=== PATIENT | male | born 1955 | race Caucasian/White ===

== ENCOUNTER 2018-05-11 21:43 | Inpatient (IN) | payer OTHER ==
--- NOTE | 2018-05-11 22:53 | ED ---
General Adult HPI - General Source: patient, family Mode of arrival: ambulatory Limitations: no limitations <Zakia Shannon - Last Filed: 05/12/18 13:01> <Deepti Cowan - Last Filed: 05/12/18 21:31> - General Chief complaint: Skin/Abscess/Foreign Body Stated complaint: Left Elbow Injury Time Seen by Provider: 05/11/18 21:58 - History of Present Illness Initial comments: 62-year-old male with past medical history of atrial fibrillation on warfarin presenting today for chief complaint of left elbow swelling, redness and warmth. Patient states that about 3-4 days ago he felt as though he hit his elbow however there is no history of trauma. Patient denies any breaks the skin 's or bites he denies any itchiness. Patient states that since become swollen, red and warm to touch. Patient states he is limited range of motion secondary to pain. Patient states he was concerned for cellulitis as he has had this in the past and needed IV antibiotics and incision and drainage. PT does admit to having chills and night sweats, denies recording fever. Remaining ROS (-), Patient denies any recent surgeries, prosthetics, prosthetic valves, shortness of breath, chest pain, back pain, abdominal pain, nausea or vomiting, numbness or tingling, dysuria or hematuria, constipation or diarrhea, headaches or visual changes, or any other complaints. (Zakia Shannon) - Related Data Home Medications Medication Instructions Recorded Confirmed Lisinopril [Zestril] 2.5 mg PO DAILY 05/11/18 05/11/18 Metoprolol Tartrate [Lopressor] 50 mg PO BID 05/11/18 05/11/18 Multivit-Min/FA/Lycopen/Lutein 1 tab PO DAILY 05/11/18 05/11/18 [Centrum Silver Tablet] Vitamin E (Dl,Tocopheryl Acet) 400 unit PO DAILY 05/11/18 05/11/18 [Vitamin E] Warfarin Sodium [Coumadin] 5 mg PO SUMOWEFR 05/11/18 05/11/18 Warfarin Sodium [Coumadin] 7.5 mg PO TUTHSA 05/11/18 05/11/18 Aspirin 81 PO DAILY 05/12/18 Allergies Allergy/AdvReac Type Severity Reaction Status Date / Time No Known Allergies Allergy Verified 05/11/18 22:35 Review of Systems ROS Other: All systems not noted in ROS Statement are negative. <Zakia Shannon - Last Filed: 05/12/18 13:01> ROS Other: All systems not noted in ROS Statement are negative. <Eden Cowanica P - Last Filed: 05/12/18 21:31> ROS Statement: Those systems with pertinent positive or pertinent negative responses have been documented in the HPI. Past Medical History Past Medical History: Atrial Fibrillation, Hypertension, Renal Disease History of Any Multi-Drug Resistant Organisms: None Reported Past Surgical History: Heart Catheterization Past Psychological History: No Psychological Hx Reported Smoking Status: Never smoker Past Alcohol Use History: Occasional Past Drug Use History: None Reported - Past Family History Father Family Medical History: Diabetes Mellitus Additional Family Medical History / Comment(s): bipass surgery Mother Additional Family Medical History / Comment(s): TB as a kid <Zakia Shannon - Last Filed: 05/12/18 13:01> General Exam Limitations: no limitations <Zakia Shannon - Last Filed: 05/12/18 13:01> <CowanDeepti P - Last Filed: 05/12/18 21:31> - General Exam Comments Initial Comments: General: The patient is awake and alert, in no distress, and does not appear acutely ill. Eye: Pupils are equal, round and reactive to light, extra-ocular movements are intact. No nystagmus. There is normal conjunctiva bilaterally. No signs of icterus. Ears, nose, mouth and throat: There are moist mucous membranes and no oral lesions. Neck: The neck is supple, there is no tenderness or JVD. Cardiovascular: There is a regular rate and rhythm. No murmur, rub or gallop is appreciated. Respiratory: Lungs are clear to auscultation, respirations are non-labored, breath sounds are equal. No wheezes, stridor, rales, or rhonchi. Musculoskeletal: SOft tissue swelling and warmth to palpation of the left elbow in comparison with the right elbow. Normal ROM, no tenderness of the right elbow, there is limitation of full extension and flexion secondary to pain of the left. Strength 5/5 at the elbow, wrists, and shoulder equal b/l. Sensation intact. Radial pulses equal bilaterally 2+. No breaks in skin or ecchymosis.No swelling distal to elbow. Neurological: A&O x 3. CN II-XII intact, There are no obvious motor or sensory deficits. Coordination appears grossly intact. Speech is normal. Skin: Skin is warm and dry and no rashes or lesions are noted. Psychiatric: Cooperative, appropriate mood & affect, normal judgment. (Zakia Shannon) Course <Zakia Shannon - Last Filed: 05/12/18 13:01> <Deepti Cowan - Last Filed: 05/12/18 21:31> Vital Signs 05/11/18 05/12/18 21:54 00:26 Temperature 99.6 F 98.3 F Pulse Rate 75 76 Respiratory 20 18 Rate Blood Pressure 134/91 118/96 O2 Sat by Pulse 96 98 Oximetry - Reevaluation(s) Reevaluation #1: Upon shift change, and until patient admission to floor Dr. Cowan attending provider will resume patient care. 05/11/18 23:39 (Zakia Shannon) Medical Decision Making - Lab Data Result diagrams: 05/11/18 22:30 05/11/18 22:30 <Zakia Shannon - Last Filed: 05/12/18 13:01> - Lab Data Result diagrams: 05/11/18 22:30 05/11/18 22:30 <Deepti Cowan - Last Filed: 05/12/18 21:31> - Medical Decision Making 62-year-old male presenting for atraumatic left elbow pain swelling and erythema. Physical examination findings concerning for cellulitis however unable to rule out septic joint as patient has limitations of range of motion diffuse erythema and warmth. Patient was started on vancomycin and ceftriaxone empirically. Patient did have elevated inflammatory markers as well as mild leukocytosis. Patient complaining of constitutional symptoms such as night sweats as well as chills. Patient afebrile upon arrival,. Nontoxic no evidence of sepsis. Patient given IV fluids he will be admitted to medicine with orthopedic consultation. Patient is agreeable to admission denies constant this time. I did discuss the case attending provider Dr. Cowan who is agreeable patient's admission, and care plan. (Zakia Shannon) I personally saw and examined the patient. I reviewed and agree with the mid- level provider findings including all diagnostic interpretations and treatment plans as written. Patient with atraumatic left elbow pain swelling decreased range of motion. His leukocytosis as well as elevation of his inflammatory markers ESR and CRP. There is concerning for septic joint. IV antibiotics ordered patient was admitted to medicine for infection with orthopedics on consult for further evaluation and possible septic joint. (Deepti Cowan) - Lab Data Lab Results 05/11/18 05/11/18 05/11/18 Range/Units 22:30 22:30 22:30 WBC 11.9 H (3.8-10.6) k/uL RBC 4.66 (4.30-5.90) m/uL Hgb 13.8 (13.0-17.5) gm/dL Hct 42.3 (39.0-53.0) % MCV 90.8 (80.0-100.0) fL MCH 29.7 (25.0-35.0) pg MCHC 32.7 (31.0-37.0) g/dL RDW 13.7 (11.5-15.5) % Plt Count 258 (150-450) k/uL Neutrophils % 74 % Lymphocytes % 15 % Monocytes % 6 % Eosinophils % 2 % Basophils % 0 % Neutrophils # 8.9 H (1.3-7.7) k/uL Lymphocytes # 1.8 (1.0-4.8) k/uL Monocytes # 0.7 (0-1.0) k/uL Eosinophils # 0.2 (0-0.7) k/uL Basophils # 0.0 (0-0.2) k/uL ESR Cancelled PT 25.2 H (9.0-12.0) sec INR 2.6 H (<1.2) APTT 41.9 H (22.0-30.0) sec Sodium 141 (137-145) mmol/L Potassium 4.5 (3.5-5.1) mmol/L Chloride 109 H (98-107) mmol/L Carbon Dioxide 24 (22-30) mmol/L Anion Gap 8 mmol/L BUN 20 (9-20) mg/dL Creatinine 1.13 (0.66-1.25) mg/dL Est GFR (CKD-EPI)AfAm 80 (>60 ml/min/1.73 sqM) Est GFR (CKD-EPI)NonAf 69 (>60 ml/min/1.73 sqM) Glucose 113 H (74-99) mg/dL Calcium 8.6 (8.4-10.2) mg/dL Total Bilirubin 0.5 (0.2-1.3) mg/dL AST 19 (17-59) U/L ALT 29 (21-72) U/L Alkaline Phosphatase 61 (38-126) U/L C-Reactive Protein 73.7 H (<10.0) mg/L Total Protein 7.4 (6.3-8.2) g/dL Albumin 3.6 (3.5-5.0) g/dL 05/11/18 Range/Units 23:29 WBC (3.8-10.6) k/uL RBC (4.30-5.90) m/uL Hgb (13.0-17.5) gm/dL Hct (39.0-53.0) % MCV (80.0-100.0) fL MCH (25.0-35.0) pg MCHC (31.0-37.0) g/dL RDW (11.5-15.5) % Plt Count (150-450) k/uL Neutrophils % % Lymphocytes % % Monocytes % % Eosinophils % % Basophils % % Neutrophils # (1.3-7.7) k/uL Lymphocytes # (1.0-4.8) k/uL Monocytes # (0-1.0) k/uL Eosinophils # (0-0.7) k/uL Basophils # (0-0.2) k/uL ESR 60 H PT (9.0-12.0) sec INR (<1.2) APTT (22.0-30.0) sec Sodium (137-145) mmol/L Potassium (3.5-5.1) mmol/L Chloride (98-107) mmol/L Carbon Dioxide (22-30) mmol/L Anion Gap mmol/L BUN (9-20) mg/dL Creatinine (0.66-1.25) mg/dL Est GFR (CKD-EPI)AfAm (>60 ml/min/1.73 sqM) Est GFR (CKD-EPI)NonAf (>60 ml/min/1.73 sqM) Glucose (74-99) mg/dL Calcium (8.4-10.2) mg/dL Total Bilirubin (0.2-1.3) mg/dL AST (17-59) U/L ALT (21-72) U/L Alkaline Phosphatase (38-126) U/L C-Reactive Protein (<10.0) mg/L Total Protein (6.3-8.2) g/dL Albumin (3.5-5.0) g/dL Disposition Is patient prescribed a controlled substance at d/c from ED?: No Time of Disposition: 23:39 Decision to Admit Reason: Admit from EC Decision Date: 05/11/18 Decision Time: 23:39 <Zakia Shannon L - Last Filed: 05/12/18 13:01> <Deepti Cowan - Last Filed: 05/12/18 21:31> Clinical Impression: Swelling of left elbow, Septic joint of left elbow Disposition: ADMITTED IP TO THIS [facility] Condition: Stable
--- NOTE | 2018-05-11 22:55 | XR ---
EXAM: XR Left Elbow Complete, 3 or More Views CLINICAL HISTORY: ITS.REASON XR Reason: look for effusion TECHNIQUE: Frontal, lateral and oblique views of the left elbow. COMPARISON: No relevant prior studies available. IMPRESSION: There is joint effusion as evidenced by elevation of the anterior and posterior fat pads. There appears to be possible fracture line through coronoid process.
[2018-05-11 23:06] LABS: Basophils % (A) 0 %; Eosinophils # (A) 0.2 k/uL (0-0.7); Eosinophils % (A) 2 %; HCT 42.3 % (39.0-53.0); HGB 13.8 gm/dL (13.0-17.5); Lymphocytes # (A) 1.8 k/uL (1.0-4.8); Lymphocytes % (A) 15 %; MCH 29.7 pg (25.0-35.0); MCHC 32.7 g/dL (31.0-37.0); MCV 90.8 fL (80.0-100.0); Mean Platelet Volume 6.6; Monocytes # (A) 0.7 k/uL (0-1.0); Monocytes % (A) 6 %; Neutrophils # (A) 8.9 k/uL (1.3-7.7); Neutrophils % (A) 74 %; Platelet Count 258 k/uL (150-450); RBC 4.66 m/uL (4.30-5.90); RDW 13.7 % (11.5-15.5); WBC 11.9 k/uL (3.8-10.6)
[2018-05-11 23:10] LABS: INR 2.6 (<1.2); Partial Thromboplastin Time 41.9 sec (22.0-30.0); Prothrombin Time 25.2 sec (9.0-12.0)
[2018-05-11 23:14] LABS: Albumin 3.6 g/dL (3.5-5.0); C Reactive Protein 73.7 mg/L (<10.0); Calcium 8.6 mg/dL (8.4-10.2); Potassium 4.5 mmol/L (3.5-5.1); Total Bilirubin 0.5 mg/dL (0.2-1.3); Total Protein 7.4 g/dL (6.3-8.2)
[2018-05-11] MEDS ORDERED: VANCOMYCIN IV PER PHARMACY 1 EACH MISC MISCELLANE PRN (23:35)
[2018-05-11] MEDS ORDERED: NALOXONE 0.4 MG/ML 1 ML VIAL IV PRN (23:36)
[2018-05-11] MEDS ORDERED: IBUPROFEN 400 MG TAB PO PRN (23:36)
[2018-05-11] MEDS ORDERED: VANCOMYCIN 1,500 MG in SODIUM CHLORIDE 0.9% 250 ML IVPB STA (23:38)
[2018-05-12] MEDS: SODIUM CHLORIDE 0.9% 1,000 ML IV SCH ×2 (00:26→19:36)
--- NOTE | 2018-05-12 12:03 | P.CNOR ---
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 He says that he has been having decreased range of motion and pain over the outside of his left elbow. He denies any specific injury or trauma. He denies any history of any specific injury to his elbow in the past. He says the pain is mainly on the outside of his left elbow. He has pain at end ranges of his motion and has some decreased range of motion in his left elbow. He is not having any numbness tingling in his hands and fingers. He is not having problems in his shoulder. He is not having his neck. He denies any fevers chills. Denies any fevers or night sweats. Review of Systems Denies any fevers chills or night sweats. Denies any specific injury to his left elbow. Denies any pain in his other extremity. Denies any neck or back pain. Denies any weakness in his left hand. He has problems whenever he tries to move his elbow or bend it fully or extended fully. He says the pain is mainly on the outside of his elbow feels around the soft tissue rather than deepened to the joint. He says he does have history of gout. Past Medical History Past Medical History: Atrial Fibrillation, Hypertension, Renal Disease Additional Past Medical History / Comment(s): Admits to history of gout History of Any Multi-Drug Resistant Organisms: None Reported Past Surgical History: Heart Catheterization Past Psychological History: No Psychological Hx Reported Smoking Status: Never smoker Past Alcohol Use History: Occasional Past Drug Use History: None Reported - Past Family History Father Family Medical History: Diabetes Mellitus Additional Family Medical History / Comment(s): bipass surgery Mother Additional Family Medical History / Comment(s): TB as a kid Medications and Allergies Home Medications Medication Instructions Recorded Confirmed Type Lisinopril [Zestril] 2.5 mg PO DAILY 05/11/18 05/11/18 History Metoprolol Tartrate [Lopressor] 50 mg PO BID 05/11/18 05/11/18 History Multivit-Min/FA/Lycopen/Lutein 1 tab PO DAILY 05/11/18 05/11/18 History [Centrum Silver Tablet] Vitamin E (Dl,Tocopheryl Acet) 400 unit PO DAILY 05/11/18 05/11/18 History [Vitamin E] Warfarin Sodium [Coumadin] 5 mg PO SUMOWEFR 05/11/18 05/11/18 History Warfarin Sodium [Coumadin] 7.5 mg PO TUTHSA 05/11/18 05/11/18 History Aspirin 81 PO DAILY 05/12/18 History Allergies Allergy/AdvReac Type Severity Reaction Status Date / Time No Known Allergies Allergy Verified 05/11/18 22:35 Physical Examination Osteopathic Statement: *. No significant issues noted on an osteopathic structural exam other than those noted in the History and Physical/Consult. - Elbow left Location of pain: medial, lateral Swelling: of the elbow (At his left elbow there is some diffuse swelling posteriorly. There is no fluctuance at the olecranon bursa. There is warmth over the area but no significant erythema. He has motion at his left elbow independently to about 30 shy of full extension to roughly 110. His overall arc is from 110 to approximately 150. He has good supination and pronation. He has no pain in his wrist hand or fingers. He has full active passive motion range of motion of his wrist hand and fingers. He has tenderness to palpation over his lateral epicondyle. There is no pain with resisted extension or resisted extension of his fingers. There is no tenderness over his radial head. There is mild tenderness over his medial epicondyle. There is no tenderness over his olecranon. There is no olecranon bursa fluid.) Results - Labs Labs: Abnormal Lab Results - Last 24 Hours (Table) 05/11/18 05/11/18 05/11/18 Range/Units 22:30 22:30 22:30 WBC 11.9 H (3.8-10.6) k/uL Neutrophils # 8.9 H (1.3-7.7) k/uL ESR (0-15) mm/hr PT 25.2 H (9.0-12.0) sec INR 2.6 H (<1.2) APTT 41.9 H (22.0-30.0) sec Chloride 109 H (98-107) mmol/L Glucose 113 H (74-99) mg/dL C-Reactive Protein 73.7 H (<10.0) mg/L 05/11/18 Range/Units 23:29 WBC (3.8-10.6) k/uL Neutrophils # (1.3-7.7) k/uL ESR 60 H (0-15) mm/hr PT (9.0-12.0) sec INR (<1.2) APTT (22.0-30.0) sec Chloride (98-107) mmol/L Glucose (74-99) mg/dL C-Reactive Protein (<10.0) mg/L H & H 05/11/18 Range/Units 22:30 Hgb 13.8 (13.0-17.5) gm/dL Hct 42.3 (39.0-53.0) % Coagulation 05/11/18 Range/Units 22:30 INR 2.6 H (<1.2) Result Diagrams: 05/11/18 22:30 05/11/18 22:30 - Diagnostic results Elbow x-ray: report reviewed, image reviewed (Left elbow x-rays show some diffuse swelling. There is some old-appearing consultation changes at the tip of the coronoid but this does not appear acute. There is no obvious fracture at the epicondyles.) Assessment and Plan Assessment: Left elbow pain and swelling possible cellulitis, atraumatic No apparent fracture acutely at the bony elbow. Possible gout left elbow Plan: Left elbow pain and swelling possible cellulitis, atraumatic No apparent fracture acutely at the bony elbow. Possible gout left elbow We discussed the nature the patient's pain today and they different possibilities including the possibility of infected left elbow joint. It does not appear to be grossly infected at the elbow joint itself. He is having some warmth and decreased range of motion with pain in his left elbow so this is certainly concern. We will also be conservative the possibility of gout. He has primarily most of his pain at his lateral condyle condyle and posterior along his elbow where there is some warmth. He does not have olecranon bursitis. He is not having pain over the radial head. He is started on vancomycin which is appropriate for him and may do well with warm compresses over his left elbow for cellulitis. He may do well with some relative immobilization as needed with a Lucho wrap and a arm sling as well we will order that for him that he can use on as-needed basis for comfort. In regards to possibility of septic arthritis versus gout we discussed possibility of a joint aspiration at bedside. We discussed risks, occasions of this and he elected to proceed with it as this would help with diagnosis and possible treatment. Today at bedside after obtaining informed consent I performed a aspiration of his left elbow laterally. I was able to enter into the joint space. There is no evidence of any purulence. There is no pus. I was only able to withdraw one drop of clear synovial yellowish fluid. There is no significant fluid in the joint space. The joint fluid appeared to be essentially normal. I took a culture of the joint fluid itself we were not able to send the fluid for any cell count or crystals. The patient tolerated the procedure well. We will follow closely the results and continue conservative treatment for him. I think it is okay for the patient to have regular diet as we do not have surgical plans at this point. Time with Patient: Greater than 30
[2018-05-12] MEDS: VANCOMYCIN 1,500 MG in SODIUM CHLORIDE 0.9% 250 ML IVPB SCH (13:23)
[2018-05-12] MEDS: ACETAMINOPHEN TAB 325 MG TAB PO PRN (19:34)
--- NOTE | 2018-05-12 20:07 | CONS ---
CONSULTATION DATE OF SERVICE: 05/12/2018. REASON FOR CONSULTATION: Left elbow cellulitis. HISTORY OF PRESENT ILLNESS: The patient is a 62 -year-old male presenting to the ER at [facility] last night with chief complaints of pain, swelling and redness to the left elbow area that apparently started about 3 days before he presented to the hospital. Patient did not recall any history of any trauma or any sore or any pimple on his left elbow area. Subsequently the elbow and the left upper arm area becoming more swollen, red and painful. Pain described to be throbbing almost 7 to 8 out of 10 and severe with no radiation and is painful with movement of his elbow joint. The patient did have some chills but denies high-grade fever. The patient did have a previous history of cellulitis in the same location. With concern for the same, the patient presented to the [facility] ER where the patient was evaluated by the ER physician. The patient did have x-rays of the elbow. There is joint effusion as evidenced by elevation of the anterior and posterior fat pads, possible fracture line through the coronoid process. The patient, on admission, did have a low grade fever of 99.6, subsequent did have a fever of 100 degrees Fahrenheit. The patient with tachycardia with elevated white count of 11.9. Kidney function has been normal. CRP was 73.7. The patient has been started on vancomycin. An aspirate of the left arm has been done by the ER physician, sent only for culture. Infectious Disease was consulted for further recommendations regarding antibiotic therapy. REVIEW OF SYSTEMS: CONSTITUTIONAL: Positive for weakness and chills. EYES: No complaint. ENT no complaint. Respiratory no complaint. Cardiovascular no complaint. Genitourinary no complaint. Gastrointestinal: No complaint. Musculoskeletal as per HPI. INTEGUMENTARY as per HPI. Psychological no complaint. Endocrine no complaint. Neurologic no complaint. PAST MEDICAL HISTORY: Atrial fibrillation, Renal insufficiency, hypertension, previous episode of cellulitis. PAST SURGICAL HISTORY: Heart catheterization. SOCIAL HISTORY: No history of smoking, occasionally drinks. No drug use. FAMILY HISTORY: Father history of coronary artery disease and diabetes mellitus, mother with history of TB as a child. ALLERGIES: No known drug allergies. MEDICATIONS: Medications include the patient is on vancomycin 1500 mg q.12h, Narcan, Motrin, Tylenol. PHYSICAL EXAMINATION: On examination, blood pressure is 115/74 with a pulse of 96, temperature of 100. He is 95% on room air. General description is a middle aged male up in the bed in no distress. No tachypnea or accessories muscles of respiration use. HEENT: Shows no pallor or scleral icterus. Oral mucosa membranes are moist with no pharyngeal erythema or thrush. Neck: Trachea central. No thyromegaly. Lungs unlabored breathing. Clear to auscultation anteriorly. No wheeze or crackles. Heart S1, S2. Regular rate and rhythm. No chest pain. ABDOMEN: Soft, no tenderness. No guarding. No rigidity. No organomegaly. Extremities: No edema of the feet. Examination of left upper arm on the elbow area there is no significant swelling, redness was noticed. The patient did have some on the lateral side of the elbow and the upper arm area did have area of swelling and redness, slightly warm to touch. No open wound or any fluctuation. No drainage. Neurological: Patient is awake, alert, oriented times three. Mood and affect normal. LABS: Hemoglobin 13.2, white count 11.9, INR 2.6 with a BUN of 20, creatinine 1.13. X-ray report as mentioned above. Culture currently pending. DIAGNOSTIC IMPRESSION AND PLAN: Patient with acute left upper extremity cellulitis, predominantly at the elbow area with evidence of fluid, concern possibly for the septic olecranon bursitis, less likely acute arthritis in this patient admitted to the hospital with complaint of sepsis. The patient did have a fever and tachycardia, elevated white count, likely from a gram- positive skin rima such as strep underlying MRSA infection not entirely excluded. PLAN: 1. Vancomycin pharmacy to dose target of 15. 2. Will wait for the aspirate of the elbow and discuss with the Orthopedic the patient will benefit from further ID of the left olecranon bursa or bursectomy. 3. We will follow up on clinical condition and culture to further adjust medication if needed. Thank you for this consultation. We will follow this patient along with you. MMODL / IJN: [id number] /
[2018-05-12] MEDS: METOPROLOL TARTRATE 50 MG TAB PO SCH (21:59)
[2018-05-13] MEDS: VANCOMYCIN 1,500 MG in SODIUM CHLORIDE 0.9% 250 ML IVPB SCH ×2 (01:04→13:26)
[2018-05-13] MEDS: METOPROLOL TARTRATE 50 MG TAB PO SCH ×2 (07:38→21:12)
[2018-05-13] MEDS: LISINOPRIL 2.5 MG TAB PO SCH (07:38)
[2018-05-13] MEDS: ACETAMINOPHEN TAB 325 MG TAB PO PRN ×3 (07:40→21:10)
--- NOTE | 2018-05-13 08:50 | P.PN ---
Progress Note - Text Progress Note Date: 05/13/18 Patient is a pleasant 62-year-old male who is seen in the bedside for follow-up evaluation in regards to his left elbow. Yesterday joint aspiration of the left elbow was performed at bedside and fluid was sent for culture. Culture results are still pending but preliminary results show rare gram-positive cocci. He was seen and examined yesterday by Dr. Lerma infectious disease. He is currently on vancomycin. Patient states his left elbow pain has improved since yesterday. He does have some generalized swelling at the left elbow with some mild pain with palpation over the lateral epicondyle. His most significant complaint at the bedside today is increased swelling over the fingers of the left hand. He does not have increased swelling over the distal forearm or over the hand but does have swelling and all 5 digits of the left hand. He denies any injuries overnight. He continues to be seeing exam by medicine. Physical Exam: Patient is awake, alert, and oriented 3 Vital signs stable Good chest excursion with deep inspiration and expiration Diffuse swelling posteriorly over the left elbow No fluctuance over the olecranon bursa Skin over the left elbow is warm to palpation Mild pain with palpation over the lateral epicondyle No significant tenderness with palpation over the medial epicondyle No tenderness over the olecranon No palpable fluid collection Patient has had some increased range of motion with flexion and extension of the left elbow as compared to yesterday Patient is able to perform supination and pronation without significant difficulty Significant pain with palpation over the left forearm, hand, or digits of the left hand Evidence of increased swelling over all 5 digits of the left hand Patient has difficulty making a fist with the left hand due to swelling over all 5 digits of the left hand New onset swelling of the fingers of the left hand Neurovascularly intact left upper extremity Pertinent studies: Left elbow wound Gram stain preliminary results: Rare gram-positive cocci and few polymorphonuclear leukocytes Anaerobic wound culture of the left elbow preliminary results: No growth after 24 hours Assessment: Left elbow pain and swelling atraumatic Positive preliminary Gram stain results of rare gram-positive cocci at the left elbow Swelling of 5 digits of the left hand with reduced range of motion due to swelling Plan: 1. Patient will be discussed in detail today with Dr. Lawrence Joiner. Patient has had some improvement of his left elbow pain since being seen exam yesterday. He continues to receive vancomycin. He has been seen and examined by Dr. Lerma infectious disease. His most significant pain is increased swelling with some decreased range of motion of the fingers of the left hand due to swelling. It is difficult to determine the cause of the increased swelling in the fingers of the left hand. He is not experiencing any significant swelling over the left distal forearm or hand. He does not currently have a palpable fluid collection , any open wounds, no active drainage from the left elbow, and no obvious area of the left elbow currently in which irrigation and debridement at the left elbow would provide significant change in his symptoms. We are currently planning to continue with conservative treatment options. Patient may continue with vancomycin as prescribed by infectious disease. After further discussion with Dr. Lawrence Joiner, we will adjust our plan accordingly if he feels we should proceed forward with more invasive treatment. In the meantime we will continue conservative treatment as previously set forth. He may continue with warm compresses over the left elbow for comfort and support. He may use Lucho wrap and arm sling for comfort support as needed. 2. Patient will continue to be seen and exam by Dr. Lerma infectious disease and medicine.
[2018-05-13 11:11] LABS: Anion Gap 7 mmol/L; Blood Urea Nitrogen 18 mg/dL (9-20); Calcium 8.9 mg/dL (8.4-10.2); Carbon Dioxide 24 mmol/L (22-30); Chloride 108 mmol/L (98-107); Glucose 139 mg/dL (74-99); Sodium 139 mmol/L (137-145)
--- NOTE | 2018-05-13 14:51 | P.PN ---
Progress Note - Text Came in multiple times to see the patient. Patient not available. Patient is an MRI. We'll see him again in the evening or tomorrow.
[2018-05-13] MEDS: SODIUM CHLORIDE 0.9% 1,000 ML IV SCH (14:59)
--- NOTE | 2018-05-13 16:23 | PN ---
PROGRESS NOTE DATE OF SERVICE: 05/13/2018 REASON FOR FOLLOWUP: Left upper extremity cellulitis with a question of olecranon bursitis. INTERVAL HISTORY: The patient is currently afebrile. The patient is breathing comfortably. The patient does have some pain to the left upper extremity area, though overall swelling and redness have decreased and the pain has decreased in intensity. He denies having any chest pain, shortness of breath or cough. No abdominal pain or any diarrhea. PHYSICAL EXAMINATION: Blood pressure 126/80 with a pulse of 80, temperature 98.6. He is 96% on room air. General description is a middle-aged male lying in bed in no distress. RESPIRATORY SYSTEM: Unlabored breathing. Clear to auscultation anteriorly. HEART: S1, S2. Regular rate and rhythm. ABDOMEN: Soft. No tenderness. Left arm swelling and redness decreased. LABS: BUN of 18, creatinine 0.97. Blood culture negative. The aspirate of the left elbow is currently pending. DIAGNOSTIC IMPRESSION AND PLAN: Patient with left upper extremity cellulitis in this patient with a question of possible olecranon bursitis. Currently on vancomycin; to continue for now while waiting for the culture to finalize. Continue with supportive care. MMODL / IJN: [id number] /
[2018-05-13 16:30] LABS: INR 2.1 (<1.2); Prothrombin Time 20.2 sec (9.0-12.0)
--- NOTE | 2018-05-13 17:54 | MR ---
MR left elbow with and without contrast HISTORY: Pain and swelling Correlation to plain film 05/11/2017 Multiplanar multisequence imaging through the left elbow There is an elbow joint effusion. Triceps tendon shows a normal insertion. 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 Subcutaneous edema is present. Some fluid signal also present along the fascial planes. No evident biceps tear. Post contrast images show nodular enhancement of the synovium. Bone marrow shows normal signal. No evident periostitis. IMPRESSION: There is underlying osteoarthritis. Inflammatory changes of the synovium, no evident bone erosion or periostitis to suggest osteomyelitis. Difficult to exclude superinfection of patient's peter int effusion..
[2018-05-14] MEDS: VANCOMYCIN 1,500 MG in SODIUM CHLORIDE 0.9% 250 ML IVPB SCH ×2 (01:40→12:53)
[2018-05-14] MEDS: METOPROLOL TARTRATE 50 MG TAB PO SCH ×2 (07:31→21:13)
[2018-05-14] MEDS: LISINOPRIL 2.5 MG TAB PO SCH (07:31)
[2018-05-14] MEDS: ASPIRIN 81 MG PO SCH (07:31)
[2018-05-14] MEDS: ACETAMINOPHEN TAB 325 MG TAB PO PRN ×2 (07:31→21:13)
[2018-05-14] MEDS: SODIUM CHLORIDE 0.9% 1,000 ML IV SCH (10:39)
[2018-05-14] MEDS ORDERED: VANCOMYCIN TROUGH DUE 1 EACH MISC MISCELLANE ONE (12:00)
[2018-05-14 12:28] LABS: Anion Gap 7 mmol/L; Blood Urea Nitrogen 19 mg/dL (9-20); Calcium 8.9 mg/dL (8.4-10.2); Carbon Dioxide 25 mmol/L (22-30); Chloride 108 mmol/L (98-107); Glucose 83 mg/dL (74-99); Potassium 4.3 mmol/L (3.5-5.1); Sodium 140 mmol/L (137-145)
--- NOTE | 2018-05-14 13:09 | P.PN ---
Progress Note - Text Progress Note Date: 05/14/18 Patient is a pleasant 62-year-old male who is seen in the bedside for follow-up evaluation in regards to his left elbow. Sunday joint aspiration of the left elbow was performed at bedside and fluid was sent for culture. Gram stain results have been finalized and show rare gram-positive cocci. He was seen and examined yesterday by Dr. Lerma infectious disease. He continues to be on vancomycin. Patient states his left elbow pain has continued to improved since yesterday. He does have some generalized swelling at the left elbow with some mild pain with palpation over the lateral epicondyle. He has better range of motion of the left elbow. His most significant complaint at the bedside today is increased swelling over the fingers of the left hand but the swelling has improved as compared to yesterday. He does not have increased swelling over the distal forearm or over the hand but does have swelling and all 5 digits of the left hand. He denies any injuries overnight. He continues to be seeing exam by medicine. An MRI of the left elbow was performed after being ordered yesterday with and without contrast. Physical Exam: Patient is awake, alert, and oriented 3 Vital signs stable Good chest excursion with deep inspiration and expiration Diffuse swelling posteriorly over the left elbow No fluctuance over the olecranon bursa Skin over the left elbow is warm to palpation Mild pain with palpation over the lateral epicondyle No significant tenderness with palpation over the medial epicondyle No tenderness over the olecranon No palpable fluid collection Patient has had some increased range of motion with flexion and extension of the left elbow as compared to yesterday Patient is able to perform supination and pronation without significant difficulty No significant pain with palpation over the left forearm, hand, or digits of the left hand Evidence of mild swelling over all 5 digits of the left hand which is reduced as compared to yesterday Patient has better range of motion with flexion and extension of all fingers of the left hand Neurovascularly intact left upper extremity Pertinent studies: MRI of the left elbow with and without contrast taken on 05/13/2018: Underlying osteoarthritis; inflammatory changes of the synovium with no evidence of bony erosion or periostitis to suggest osteomyelitis; difficult to exclude superinfection of patient's joint effusion Left elbow wound Gram stain preliminary results: Rare gram-positive cocci and few polymorphonuclear leukocytes Anaerobic wound culture of the left elbow preliminary results: No growth after 24 hours Assessment: Left elbow pain and swelling atraumatic Positive finalized Gram stain results of rare gram-positive cocci at the left elbow, which could be due to contamination Reduce swelling of the 5 digits of the left hand with better range of motion Plan: 1. Patient was discussed in detail today with Dr. Lawrence Joiner. Patient's left elbow MRI has been reviewed. MRI results do not look suspicious for osteomyelitis. Patient is continue to have improvement of his left elbow pain and has had better range of motion left elbow with continued treatment with vancomycin. The swelling in his left hand has improved and he has better range of motion of the fingers of the left hand. At this time, we will continue conservative treatment. We are not currently planning for surgical intervention at the left elbow. He does not currently have a palpable fluid collection, any open wounds, no active drainage from the left elbow, and no obvious area of the left elbow currently in which irrigation and debridement at the left elbow would provide significant change in his symptoms. We are currently planning to continue with conservative treatment options. Patient may continue with vancomycin as prescribed by infectious disease. Patient may continue with warm compresses over the left elbow for comfort and support. He may use Lucho wrap and arm sling for comfort support as needed. Patient will be cleared for discharge from an orthopedic standpoint and we will plan have him follow up in approximately 1-2 weeks for further evaluation. Patient may follow -up with Ronn Guerrero PA-C or Dr. Lawrence Joiner at [facility] following discharge. If the patient has a significant change in his symptoms during this admission may be contacted for further evaluation and to discuss further treatment options. 2. Patient will continue to be seen and examed by Dr. Lerma infectious disease and medicine.
--- NOTE | 2018-05-14 15:21 | P.HPIM ---
History of Present Illness H&P Date: 05/12/18 Chief Complaint: Left elbow pain This very pleasant 59-year-old gentleman past medical history significant for A. ge[place] on Coumadin comes into the ER for pain in his left elbow for the past 3 days. Patient says that he's also having redness and swelling at the site. He denies any trauma or any source of infection. The elbow was becoming more and more swollen and painful so he came into the ER for further urology management. The patient does not complain of any feve but admits to having chills. He does not otherwise complain of any chest pain racing heart, no cough no shortness of breath, no abdominal pain, nausea and vomiting, no diarrhea constipation, no tingling numbness on in the extremities, no itch or rash Review of Systems All systems: negative Past Medical History Past Medical History: Atrial Fibrillation, Hypertension, Renal Disease Additional Past Medical History / Comment(s): Admits to history of gout History of Any Multi-Drug Resistant Organisms: None Reported Past Surgical History: Heart Catheterization Past Psychological History: No Psychological Hx Reported Smoking Status: Never smoker Past Alcohol Use History: Occasional Past Drug Use History: None Reported - Past Family History Father Family Medical History: Diabetes Mellitus Additional Family Medical History / Comment(s): bipass surgery Mother Additional Family Medical History / Comment(s): TB as a kid Medications and Allergies Home Medications Medication Instructions Recorded Confirmed Type Lisinopril [Zestril] 2.5 mg PO DAILY 05/11/18 05/11/18 History Metoprolol Tartrate [Lopressor] 50 mg PO BID 05/11/18 05/11/18 History Multivit-Min/FA/Lycopen/Lutein 1 tab PO DAILY 05/11/18 05/11/18 History [Centrum Silver Tablet] Vitamin E (Dl,Tocopheryl Acet) 400 unit PO DAILY 05/11/18 05/11/18 History [Vitamin E] Warfarin Sodium [Coumadin] 5 mg PO SUMOWEFR 05/11/18 05/11/18 History Warfarin Sodium [Coumadin] 7.5 mg PO TUTHSA 05/11/18 05/11/18 History Aspirin 81 PO DAILY 05/12/18 History Allergies Allergy/AdvReac Type Severity Reaction Status Date / Time No Known Allergies Allergy Verified 05/11/18 22:35 Physical Exam Vitals: Vital Signs Temp Pulse Resp BP Pulse Ox 05/14/18 15:00 98.5 F 76 16 126/66 95 05/14/18 07:55 16 05/14/18 05:52 97.9 F 61 20 115/76 95 05/14/18 00:00 18 05/13/18 23:00 99 F 94 20 124/82 93 L 05/13/18 15:19 18 Intake and Output 05/14/18 05/14/18 05/14/18 06:59 14:59 22:59 Intake Total 100 Balance 100 Intake: Oral 100 Other: # Voids 1 3 # Bowel Movements 0 On exam, alert and oriented x3. HEENT: Conjunctivae normal. eyes normal. NECK: No JVD. No thyroid enlargement. No LNs CARDIOVASCULAR: S1, S2 muffled. No murmur RESPIRATION: Breath sounds diminished in the bases. No rhonchi or crackles. No bronchial breathing. ABDOMEN: Soft, nontender . No guarding. no masses palpable. No ascites, No hepatosplenomegaly.Bowel sounds heard. [place] skeleton-patient is having swelling redness increased pain and decreased range of motion of his left elbow. NERVOUS SYSTEM: Cranial N 2-12 grossly normal. Moves all 4 limbs. No focal deficits. No sensory deficit. No signs of cerebellar dysfucntion. Skin: no ulcer no rash Results CBC & Chem 7: 05/11/18 22:30 05/14/18 12:00 Labs: Abnormal Lab Results - Last 24 Hours (Table) 05/13/18 05/14/18 Range/Units 10:10 12:00 PT 20.2 H (9.0-12.0) sec INR 2.1 H (<1.2) Chloride 108 H (98-107) mmol/L Microbiology - Last 24 Hours (Table) 05/12/18 11:30 Anaerobic Culture - Preliminary Elbow - Left 05/12/18 11:30 Gram Stain - Final Elbow - Left Wound Culture - Final 05/11/18 22:30 Blood Culture - Preliminary Blood No Growth after 48 hours Thrombosis Risk Factor Assmnt - Choose All That Apply Any of the Below Risk Factors Present?: Yes Each Factor Represents 1 point: Obesity (BMI >25) Other Risk Factors: Yes Each Risk Factor Represents 2 Points: Age 61-74 years Other congenital or acquired thrombophilia - If yes, enter type in comment: Yes Thrombosis Risk Factor Assessment Total Risk Factor Score: 3 Thrombosis Risk Factor Assessment Level: Moderate Risk Assessment and Plan Assessment: - Left elbow pain and redness and swelling rule out septic arthritis versus BURSITIS - History of A. fib on Coumadin - Hypertension - CKD Plan - We will admit the patient to [facility] with telemetry - We'll continue Rocephin - Orthopedics on board who aspirated the fluid - We'll consult ID for antibiotic recommendations - We'll resume the patient's home medications - DVT and GI prophylaxis - We'll order for lab work in the morning - Expected length of stay more than 2 midnights - Patient is full code Time with Patient: Greater than 30
--- NOTE | 2018-05-14 15:23 | P.PN ---
Subjective Patient says that his pain and swelling has gone a little bit and is able to move his left elbow better No fever no chills Objective - Vital Signs Vital signs: Vital Signs Temp 98.5 F 05/14/18 15:00 Pulse 76 05/14/18 15:00 Resp 16 05/14/18 15:00 BP 126/66 05/14/18 15:00 Pulse Ox 95 05/14/18 15:00 Intake & Output 05/13/18 05/14/18 05/14/18 18:59 06:59 18:59 Intake Total 240 300 Balance 240 300 Intake: Oral 240 300 Other: # Voids 3 1 3 # Bowel Movements 0 - Exam On exam, alert and oriented x3. HEENT: Conjunctivae normal. eyes normal. NECK: No JVD. No thyroid enlargement. No LNs CARDIOVASCULAR: S1, S2 muffled. No murmur RESPIRATION: Breath sounds diminished in the bases. No rhonchi or crackles. No bronchial breathing. ABDOMEN: Soft, nontender . No guarding. no masses palpable. No ascites, No hepatosplenomegaly.Bowel sounds heard. LEGS: Swelling of the elbow joint NERVOUS SYSTEM: Cranial N 2-12 grossly normal. Moves all 4 limbs. No focal deficits. No sensory deficit. No signs of cerebellar dysfucntion. Skin: no ulcer no rash Joints: No active swelling. No inflammation. Lymphatic system. No LN neck axilla or groin. - Labs CBC & Chem 7: 05/11/18 22:30 05/14/18 12:00 Labs: Abnormal Lab Results - Last 24 Hours (Table) 05/13/18 05/14/18 Range/Units 10:10 12:00 PT 20.2 H (9.0-12.0) sec INR 2.1 H (<1.2) Chloride 108 H (98-107) mmol/L Microbiology - Last 24 Hours (Table) 05/12/18 11:30 Anaerobic Culture - Preliminary Elbow - Left 05/12/18 11:30 Gram Stain - Final Elbow - Left Wound Culture - Final 05/11/18 22:30 Blood Culture - Preliminary Blood No Growth after 48 hours Assessment and Plan Assessment: - Left elbow pain and redness and swelling rule out septic arthritis versus BURSITIS - History of A. fib on Coumadin - Hypertension - CKD Plan - Continue vancomycin - Orthopedics plans no active interventions. MRI shows no acute pathology - ID on board for antibiotic recommendations. They recommended continue IV antibiotic on board a history still has some swelling and redness. - We will evaluate the patient again tomorrow to see how is doing Time with Patient: Less than 30
[2018-05-14 16:13] LABS: INR 1.5 (<1.2); Prothrombin Time 14.8 sec (9.0-12.0)
[2018-05-14] MEDS: ceFAZolin IN SWFI 2 GM/20 ML SYRINGE IVP SCH (16:30)
[2018-05-14] MEDS ORDERED: WARFARIN 7.5 MG TAB PO SCH (18:00)
[2018-05-15] MEDS: ceFAZolin IN SWFI 2 GM/20 ML SYRINGE IVP SCH ×3 (00:41→15:33)
--- NOTE | 2018-05-15 00:46 | PN ---
PROGRESS NOTE DATE OF SERVICE: 05/14/2018. REASON FOR FOLLOWUP: Left upper extremity cellulitis. INTERVAL HISTORY: The patient is currently afebrile. The patient is breathing comfortably. Did mention overall improvement swelling. No chest pain. No abdominal pain or any diarrhea. PHYSICAL EXAMINATION: Blood pressure is 126/66 with a pulse of 73, temperature 98.5. He is 95% on room air. General description is a middle aged male up in the bed in no distress. Respiratory system: Unlabored breathing. Clear to auscultation anteriorly. Heart S1, S2. Regular rate and rhythm. Abdomen soft. No tenderness. Left elbow and arm area swelling has improved. LABS: BUN of 19, creatinine is 1.5. DIAGNOSTIC IMPRESSION AND PLAN: Patient admitted to the hospital with left upper extremity swelling and redness and concern for cellulitis/ of positive. The patient is currently on vancomycin that will be transitioned to Cefazolin 2 g q.8h and if the patient does show overall clinical improvement, plan to finish therapy with oral Keflex, and close outpatient followup. Continue supportive care. MMODL / IJN: [id number] /
[2018-05-15] MEDS: SODIUM CHLORIDE 0.9% 1,000 ML IV SCH (06:14)
[2018-05-15] MEDS: ASPIRIN 81 MG PO SCH (08:58)
[2018-05-15] MEDS: METOPROLOL TARTRATE 50 MG TAB PO SCH (08:58)
[2018-05-15] MEDS: LISINOPRIL 2.5 MG TAB PO SCH (08:58)
[2018-05-15 09:38] LABS: HCT 46.9 % (39.0-53.0); HGB 14.8 gm/dL (13.0-17.5); Hypochromasia Slight; MCH 29.6 pg (25.0-35.0); MCHC 31.6 g/dL (31.0-37.0); MCV 93.8 fL (80.0-100.0); Mean Platelet Volume 6.2; Platelet Count 318 k/uL (150-450); RDW 13.5 % (11.5-15.5); WBC 10.6 k/uL (3.8-10.6)
[2018-05-15 09:47] LABS: INR 1.5 (<1.2); Prothrombin Time 14.8 sec (9.0-12.0)
[2018-05-15 10:03] LABS: Calcium 9.5 mg/dL (8.4-10.2)
--- NOTE | 2018-05-15 13:44 | PN ---
PROGRESS NOTE DATE OF SERVICE: 05/15/2018. REASON FOR FOLLOWUP: Left upper extremity cellulitis. INTERVAL HISTORY: The patient is currently afebrile. He is breathing comfortably. Pain, swelling and redness in the left upper arm has improved . He had more range of motion at the elbow joint. No chest pain, shortness of breath or cough. No abdominal pain. No diarrhea. PHYSICAL EXAMINATION: On examination, blood pressure 121/90 with a pulse of 84, temperature 97.9. He is 94% on room air. General description is a middle-aged male up in the bed in no distress. RESPIRATORY SYSTEM: Unlabored breathing, clear to auscultation anteriorly. HEART: S1, S2. Regular rate and rhythm. ABDOMEN: Soft, no tenderness. The left arm swelling and redness has improved. LABS: White count 10.6, BUN of 21, creatinine is 1.12. Blood culture has been negative. He did have aspiration from the left elbow has been negative. DIAGNOSTIC IMPRESSION AND PLAN: Patient admitted to the hospital with left elbow pain. At this point did have complaint of cellulitis initial concern for olecranon bursitis. The patient did have an aspirate and those cultures have been negative for resistant pathogen currently on cefazolin that will be transitioned to Keflex 500 mg 3 times a day for another 10 days with close outpatient followup. Prescription was sent to the pharmacy. Continue supportive care. EMILIANO / JOHNNA: [id number] /
[2018-05-15 14:59] VITALS: BP 123/82; PULSE 88; RESP 16; TEMP 98.1
--- NOTE | 2018-05-15 15:09 | P.DS ---
Providers Date of admission: 05/11/18 23:49 Expected date of discharge: 05/15/18 Attending physician: Charli Scott MD Consults: 05/11/18 23:37 Consult Physician Routine Consulting Provider: Deborah Joiner Consult Reason/Comments: possible septic left elbow Do you want consulting provider notified?: Yes 05/12/18 13:40 Consult Physician Urgent Consulting Provider: Jeremiah Lerma Consult Reason/Comments: septic arthrits Do you want consulting provider notified?: Yes Primary care physician: Stated None Hospital Course: Very pleasant 59 was gentleman with a past medical history significant for A. fib on Coumadin comes into the ER for left elbow pain and swelling going on for the last 3 days before admission. He was admitted for possible septic arthritis versus BURSITIS. Orthopedic surgery was consulted who aspirated the joint and send the fluid for culture. Patient was started on antibiotics. Infectious disease was also consulted to manage in the patient's antibiotics. Patient also had a repeat MRI done which showed no signs of vasculitis. Orthopedic surgery therefore did not recommend any surgical interventions and suggested conservative treatment with antibiotics. Patient's pain and swelling continued to improve and he was having more free range of motion when compared to when he came in. On 05/15/2018 Patient says that he's feeling good The pain and swelling going down On exam, alert and oriented x3. HEENT: Conjunctivae normal. eyes normal. NECK: No JVD. No thyroid enlargement. No LNs CARDIOVASCULAR: S1, S2 positive RESPIRATION: Breath sounds diminished in the bases. No rhonchi or crackles. No bronchial breathing. ABDOMEN: Soft, nontender . No guarding. no masses palpable. No ascites, No hepatosplenomegaly.Bowel sounds heard. LEGS: No edema. no swelling NERVOUS SYSTEM: Cranial N 2-12 grossly normal. Moves all 4 limbs. No focal deficits. No sensory deficit. No signs of cerebellar dysfucntion. Skin: no ulcer no rash Joints: Swelling and inflammation in the left elbow better Lymphatic system. No LN neck axilla or groin. Plan - Patient was discharged on Keflex to complete a course of 10 days - Patient's INR is 1.5. He will be given 10 mg of Coumadin today. He was asked to take his home dose of Coumadin tomorrow which is 7.5 and then check INR on 05/17/2018. Patient says that he follows with 's office who are requested to follow the patient's INR and his Coumadin accordingly - Patient is asked to keep up with appointments which are outlined in the discharge summary Patient Condition at Discharge: Fair Plan - Discharge Summary Discharge Rx Participant: No New Discharge Prescriptions: New Cephalexin [Keflex] 500 mg PO Q8HR #30 cap Continue Vitamin E (Dl,Tocopheryl Acet) [Vitamin E] 400 unit PO DAILY Multivit-Min/FA/Lycopen/Lutein [Centrum Silver Tablet] 1 tab PO DAILY Warfarin Sodium [Coumadin] 7.5 mg PO TUTHSA Warfarin Sodium [Coumadin] 5 mg PO SUMOWEFR Lisinopril [Zestril] 2.5 mg PO DAILY Metoprolol Tartrate [Lopressor] 50 mg PO BID Aspirin 81 PO DAILY Discharge Medication List Lisinopril [Zestril] 2.5 mg PO DAILY 05/11/18 [History] Metoprolol Tartrate [Lopressor] 50 mg PO BID 05/11/18 [History] Multivit-Min/FA/Lycopen/Lutein [Centrum Silver Tablet] 1 tab PO DAILY 05/11/18 [ History] Vitamin E (Dl,Tocopheryl Acet) [Vitamin E] 400 unit PO DAILY 05/11/18 [History] Warfarin Sodium [Coumadin] 5 mg PO SUMOWEFR 05/11/18 [History] Warfarin Sodium [Coumadin] 7.5 mg PO TUTHSA 05/11/18 [History] Aspirin 81 PO DAILY 05/12/18 [History] Cephalexin [Keflex] 500 mg PO Q8HR #30 cap 05/15/18 [Rx] Follow up Appointment(s)/Referral(s): Ronn Guerrero PAC [PHYSICIAN TRACTOR CRANE OPERATOR] - 05/24/18 9:00 am (Patient may follow-up with Ronn Guerrero PA-C or Dr. Lawrence Joiner at [facility] in 1-2 weeks following discharge. ) Nonstaff,Physician [REFERRING] - 1-2 days Jeremiah Lerma MD [STAFF PHYSICIAN] - 05/21/18 2:30 pm Ambulatory/Diagnostic Orders: Prothrombin Time INR [LAB.AMB] Time Frame: 2 Days, Location: None Selected Activity/Diet/Wound Care/Special Instructions: - If you start having any pain at the site of the left elbow and increased swelling, increased redness, any fever or chills, any to come right to the ER otherwise please follow up the infectious disease doctor Discharge Disposition: HOME SELF-CARE
[2018-05-15] MEDS ORDERED: WARFARIN 10 MG TAB PO ONE (18:00)
[2018-05-15] MEDS ORDERED: WARFARIN 5 MG TAB PO SCH (18:00)
--- NOTE | 2018-05-17 09:57 | CDI ---
Documentation Clarification Form Date: 05/17/2018 8:44:00 AM From: Raya Morgan Lila Paez, Hydraulic Punch Press Operator Hours-8:30 am & 5 pm Fabby Admit Date: 05/11/2018 11:49:00 PM Patient Name: Sukumar Handley Visit Number: [id number] Discharge Date: 05/15/2018 4:19:00 PM ATTENTION: The Clinical Documentation Specialists (CDI) and [facility] Coding Staff appreciate your assistance in clarifying documentation. Please respond to the clarification below the line at the bottom and electronically sign. The CDI & [facility] Coding staff will review the response and follow-up if needed. Please note: Queries are made part of the Legal Health Record. If you have any questions, please contact the author of this message via ITS. Dr. Charli Scott ID consult documents patient admitted with sepsis. History/Risk Factors: Cellulitis, Septic arthritis, HTN, CKD Clinical Indicators: WBC 11.96,10.6 Blood cultures: Gram Positive Bacilli Vitals signs on admission: T 99.6, BP 134/91, RR 20, NV 85 Antibiotics: IV Abx In your professional opinion, please clarify if these findings signify one of the following conditions, if known: Condition Sepsis ruled out Sepsis ruled in Severe Sepsis Septic Shock Other, please specify Unable to determine ruled out MTDD
--- NOTE | 2018-05-17 10:04 | CDI ---
Documentation Clarification Form Date: 05/17/2018 8:57:00 AM From: Raya Morgan Lila Paez, Admissions Coordinator Hours-8:30 am & 5 pm M-Jimmy Admit Date: 05/11/2018 11:49:00 PM Patient Name: Sukumar Handley Visit Number: [id number] Discharge Date: 05/15/2018 4:19:00 PM ATTENTION: The Clinical Documentation Specialists (CDI) and [facility] Coding Staff appreciate your assistance in clarifying documentation. Please respond to the clarification below the line at the bottom and electronically sign. The CDI & [facility] Coding staff will review the response and follow-up if needed. Please note: Queries are made part of the Legal Health Record. If you have any questions, please contact the author of this message via ITS. Dr. Charli Scott Atrial Fibrillation is documented in the H&P, Consult History/Risk Factors: HTN, CKD Treatment: Warfarin In your professional opinion, can you please clarify the type of Atrial Fibrillation, if known? Chronic/Permanent Paroxysmal Persistent Other, please specify Unable to determine unable to determine MTDD
== END 2018-05-15 16:19 | disposition home or self-care (01) | DRG 603 ==
LOC: EC 21:43 → 4MS4W 23:49
PROVIDERS: ADMIT Internal Medicine; ATTEND Internal Medicine
PROC: 0R9M3ZX Drainage of Left Elbow Joint, Percutaneous Approach, Diagnostic (ICD-10-PCS; principal; 2018-05-12)
DX: L03.114 Cellulitis of left upper limb (principal); M00.9 Pyogenic arthritis, unspecified; M70.32 Other bursitis of elbow, left elbow; I48.91 Unspecified atrial fibrillation; M25.422 Effusion, left elbow; N18.9 Chronic kidney disease, unspecified; M10.9 Gout, unspecified; I12.9 Hypertensive chronic kidney disease with stage 1 through stage 4 chronic kidney disease, or unspecified chronic kidney disease; R00.0 Tachycardia, unspecified; Z79.01 Long term (current) use of anticoagulants; Z79.899 Other long term (current) drug therapy; Z82.49 Family history of ischemic heart disease and other diseases of the circulatory system; Z83.3 Family history of diabetes mellitus
CPT/HCPCS: 36415; 80048; 80053; 80202; 85025; 85027; 85610; 85652; 85730; 86140; 87040; 87070; 87075; 87205; 99284

== ENCOUNTER 2018-12-20 08:33 | Day surgery (SDC) | payer OTHER ==
[2018-12-18 11:51] VITALS: BMI 27.1
[~2018-12-20 08:33] MED LIST: LACTATED RINGERS 1,000 ML IV SCH; LIDOCAINE 1% 20 ML VIAL (10MG/ML) FOR IV START INTRADERMA PRN
[2018-12-20 08:57] VITALS: RESP 16; TEMP 97.7
[2018-12-20] MEDS ORDERED: PROPOFOL 10 MG/ML 20 ML VIAL IV ONE (09:42)
--- NOTE | 2018-12-20 10:13 | P.PCN ---
Date of Procedure: 12/20/18 Procedure(s) Performed: BRIEF HISTORY: Patient is a 63-year-old pleasant male scheduled for an elective colonoscopy as a part of screening for colorectal neoplasia. PROCEDURE PERFORMED: Colonoscopy. PREOPERATIVE DIAGNOSIS: Screening for colon cancer. IV sedation per Anesthesia. PROCEDURE: After informed consent was obtained, the patient, was brought into the endoscopy unit. IV sedation was administered by Anesthesia under continuous monitoring. Digital rectal examination was normal. Initially the Olympus CF-160 flexible video colonoscope was then inserted in the rectum, gradually advanced into the cecum without any difficulty. Careful examination was performed as the scope was gradually being withdrawn. Ileocecal valve and the appendiceal orifice were visualized and appeared normal. Prep was excellent. Mucosa of the cecum, ascending colon, transverse colon, descending colon, sigmoid colon, and rectum appeared normal. Sigmoid diverticula seen.. Retroflexion was performed in the rectum and no lesions were seen. The patient tolerated the procedure well. IMPRESSION: Normal-appearing colon from rectum to cecum with no evidence of colorectal neoplasia . Scattered sigmoidal diverticulosis. RECOMMENDATIONS: Findings of this examination were discussed with the patient as well as his family. He was advised to have a repeat screening colonoscopy in 10 years.
[2018-12-20 10:32] VITALS: BP 112/68; PULSE 78
== END 2018-12-20 10:50 | disposition home or self-care (01) ==
LOC: ORWHC2ENDO 08:33
PROVIDERS: ATTEND Internal Medicine Gastroenterology
DX: Z12.11 Encounter for screening for malignant neoplasm of colon (principal); K57.30 Diverticulosis of large intestine without perforation or abscess without bleeding; I48.91 Unspecified atrial fibrillation; I10 Essential (primary) hypertension; N20.0 Calculus of kidney; M10.9 Gout, unspecified; Z79.01 Long term (current) use of anticoagulants; Z79.82 Long term (current) use of aspirin; Z79.899 Other long term (current) drug therapy
CPT/HCPCS: J2704; G0121; 45378

== ENCOUNTER → 2023-02-21 | Outpatient (CLI) | payer MEDICARE, OTHER | END | disposition home or self-care (01) | LOC: LABPAT 13:19 | PROVIDERS: ATTEND Orthopaedic Surgery | DX: Z01.812 Encounter for preprocedural laboratory examination (principal); M17.12 Unilateral primary osteoarthritis, left knee; Z22.322 Carrier or suspected carrier of Methicillin resistant Staphylococcus aureus | CPT/HCPCS: 87070 ==

== ENCOUNTER → 2023-03-30 | Outpatient (CLI) | payer MEDICARE, OTHER ==
[2023-03-30 14:44] LABS: Appearance,Urine Cloudy (Clear); Bacteria,Urine Occasional /hpf; Bilirubin,Urine Negative (Negative); Blood,Urine Trace (Negative); Color,Urine Colorless; Glucose,Urine (UA) Negative (Negative); Ketones,Urine Negative (Negative); Leukocyte Esterase,Urine Moderate (Negative); Mucus,Urine Rare /hpf; Nitrite,Urine Negative (Negative); PH, Urine 5.5 (5.0-8.0); Protein,Urine 1+ (Negative); RBC,Urine 4 /hpf (0-5); Specific Gravity,Urine 1.013 (1.001-1.035); Urobilinogen,Urine <2.0 mg/dL (<2.0); WBC,Urine 79 /hpf (0-5)
[2023-03-30 15:22] LABS: Basophils # (A) 0.04 X 10*3/uL (0.00-0.10); Basophils % (A) 0.4 %; Eosinophils # (A) 0.29 X 10*3/uL (0.04-0.35); HCT 46.2 % (39.6-50.0); HGB 15.1 g/dL (13.0-17.0); Lymphocytes # (A) 2.62 X 10*3/uL (0.90-5.00); Lymphocytes % (A) 27.1 %; MCH 29.5 pg (27.0-32.0); MCHC 32.7 g/dL (32.0-37.0); MCV 90.4 FL (80.0-97.0); Mean Platelet Volume 10.5 FL (9.5-12.2); Monocytes % (A) 7.2 %; NRBC Per 100 WBC 0 X 10*3/uL (0.00-0.01); Neutrophils # (A) 5.99 X 10*3/uL (1.80-7.70); Neutrophils % (A) 62.1 %; Platelet Count 189 X 10*3/uL (140-440); RBC 5.11 X 10*6/uL (4.40-5.60); RDW 13.5 % (11.5-14.5); WBC 9.66 X 10*3/uL (4.50-10.00)
[2023-03-30 16:11] LABS: ALT 26 U/L (10-49); AST 23 U/L (14-35); Albumin 4.2 g/dL (3.8-4.9); Alkaline Phosphatase 53 U/L (41-126); BUN/Creat Ratio 17.83 Ratio (12.00-20.00); Blood Urea Nitrogen 21.4 mg/dL (9.0-27.0); Calcium 9.7 mg/dL (8.7-10.3); Carbon Dioxide 21.1 mmol/L (21.6-31.8); Chloride 106 mmol/L (96-109); Globulin 3.5 g/dL (1.6-3.3); Glucose 89 mg/dL (70-110); Potassium 4.6 mmol/L (3.5-5.5); Sodium 141 mmol/L (135-145); Total Bilirubin 0.9 mg/dL (0.3-1.2); Total Protein 7.7 g/dL (6.2-8.2)
[2023-03-30 17:52] LABS: INR 1.32 sec (0.93-1.11)
== END | disposition home or self-care (01) ==
LOC: LABWHC1 10:02
PROVIDERS: ATTEND Internal Medicine
DX: Z01.812 Encounter for preprocedural laboratory examination (principal)
CPT/HCPCS: 36415; 80053; 81001; 85025; 85610; 87077; 87086; 87186

== ENCOUNTER 2023-04-02 13:21 | Observation (INO) | payer MEDICARE, OTHER ==
[2023-03-26 18:18] VITALS: BMI 31.5
--- NOTE | 2023-04-01 19:55 | HP ---
HISTORY AND PHYSICAL DATE OF SURGERY: 04/02/2023. HISTORY OF PRESENT ILLNESS: Sukumar Handley is a 67-year-old gentleman seen with symptomatic left knee osteoarthritis. We discussed options for treatment. He elected to proceed with left total knee arthroplasty. Consent was obtained. Medical clearance was provided by Dr. Velázquez. Cardiac clearance by Dr. Roche. PAST MEDICAL HISTORY: Hypertension, hyperlipidemia, cardiovascular disease/atrial fibrillation. PAST SURGICAL HISTORY: Noncontributory. DAILY MEDICATIONS: 1. Lisinopril. 2. Metoprolol. 3. Rosuvastatin. 4. Warfarin. ALLERGIES: None. SOCIAL HISTORY: Denies tobacco use. PHYSICAL EVALUATION OF THE LEFT KNEE: His range of motion is -5/6 to 90. He is tender along the medial and lateral joint lines. He has crepitus along the medial and patellofemoral compartments with range of motion. Severe genu varum deformity. Hip rotation without pain. Distal neurovascular exam is intact. Left knee radiographs reveal severe osteoarthritis with a significant varus deformity. IMPRESSION: 1. Left knee osteoarthritis. 2. Hypertension. 3. Hyperlipidemia. 4. Atrial fibrillation. PLAN: Left total knee arthroplasty. MMODL / IJN: [id number] /
[~2023-04-02 13:21] MED LIST changes: +ACETAMINOPHEN TAB 500 MG TAB PO PRN; +DEXAMETHASONE SOD PHOSPHATE 4 MG/ML 1 ML VIAL IV ONE; +HYDROmorphone 0.5 MG/0.5 ML SYRINGE IVP PRN; -LACTATED RINGERS 1,000 ML IV SCH; -LIDOCAINE 1% 20 ML VIAL (10MG/ML) FOR IV START INTRADERMA PRN; +MELOXICAM 7.5 MG TAB PO PRN; +MIDAZOLAM 2 MG/2 ML VIAL IV PRN; +ONDANSETRON 4 MG/2 ML VIAL IVP ONE; +TRANEXAMIC 1,000 MG/100ML-NACL 1,000 MG in SALINE 1 100ML.BAG IVPB PRN
[2023-04-02] MEDS: LACTATED RINGERS 1,000 ML IV SCH ×2 (14:08→20:06)
[2023-04-02] MEDS ORDERED: PHENYLEPHRINE-0.9% NACL SYG 1,000 MCG/10 ML SYRINGE ONE (14:39)
[2023-04-02] MEDS ORDERED: PROPOFOL 10 MG/ML 20 ML VIAL IV ONE (14:39)
[2023-04-02] MEDS ORDERED: ROPIVACAINE 5 MG/ML 30 ML VIAL ONE (14:39)
[2023-04-02] MEDS ORDERED: LIDOCAINE 1% INJ 10MG/ML (20 ML MDV) ONE (14:39)
[2023-04-02] MEDS ORDERED: ePHEDrine 50 MG/ML 1 ML VIAL ONE (14:39)
[2023-04-02] MEDS ORDERED: TRANEXAMIC 1,000 MG/100ML-NACL PREMIX BAG ONE (14:39)
[2023-04-02] MEDS ORDERED: KETAMINE HCL IN 0.9 % NACL 50 MG/5 ML SYRINGE ONE (14:39)
[2023-04-02] MEDS ORDERED: fentaNYL (PF) 50 MCG/ML 2 ML AMP ONE (14:39)
[2023-04-02] MEDS ORDERED: SODIUM CHLORIDE 0.9% (PF) 10 ML VIAL ONE (14:39)
[2023-04-02] MEDS ORDERED: MIDAZOLAM 2 MG/2 ML VIAL ONE (14:39)
[2023-04-02] MEDS ORDERED: ceFAZolin 1,000 MG in SODIUM CHLORIDE 0.9% 1,000 ML IRRIGATION ONE (14:44)
[2023-04-02] MEDS ORDERED: LACTATED RINGERS 1,000 ML IV ONE (15:38)
[2023-04-02] MEDS ORDERED: HYDROmorphone 0.5 MG/0.5 ML SYRINGE IVP PRN ×3 (17:16)
[2023-04-02] MEDS ORDERED: ONDANSETRON 4 MG/2 ML VIAL IVP PRN (17:16)
[2023-04-02] MEDS ORDERED: NALOXONE 0.4 MG/ML 1 ML VIAL IV PRN (17:16)
--- NOTE | 2023-04-02 17:16 | P.OP ---
Date of Procedure: 04/02/23 Preoperative Diagnosis: Left knee osteoarthritis with severe varus deformity Postoperative Diagnosis: Left knee osteoarthritis with severe varus deformity Procedure(s) Performed: Left total knee arthroplasty Implants: 1. Depuy TC 3 size 5 left cemented femur 2. Depuy MBT revision tibial rotating platform size 4 cemented tray with a MBT revision 37 mm metaphyseal porous sleeve and 75 mm fluted stem 3. Depuy Sigma rotating platform TC 3 size 512.5 mm polyethylene tibial insert 4. Depuy all polyethylene 35 mm cemented patella Anesthesia: regional (Adductor canal catheter, Ipack block), spinal Surgeon: Patrick Baptiste Electrician Aircraft #1: Bernabe Ndiaye Estimated Blood Loss (ml): 85 Pathology: none sent Condition: stable Disposition: PACU Indications for Procedure: 59-year-old gentleman was seen with left knee osteoarthritis with a severe fixed varus deformity. I discussed left total knee arthroplasty. I discussed with the need to utilize revision components. He understood and was agreeable. Consent was obtained. Operative Findings: see description of procedure Description of Procedure: Patient was taken to the operative suite after having an adductor canal catheter placed by the department of anesthesia. Patient underwent a spinal anesthetic by the department of anesthesia. Patient was given preoperative IV intake antibiotics and TXA. A well-padded tourniquet was placed about the left lower extremity. The lower extremity was then prepped and draped in the normal sterile orthopedic fashion. The extremity was elevated, a tourniquet was insufflated to 300. A standard anterior incision was made sharply through skin. Dissection was taken down through the subcutaneous soft tissues down to the extensor mechanism. A medial arthrotomy was performed, patella was everted and knee was flexed. There was advanced osteoarthritis noted with a severe varus deformity. I initially began by performing an extensive medial release followed by removing large osteophytes.. I introduced my distal intramedullary femoral drill. I then introduced the distal femoral cutting jig. Tripp JORDAN secured the cutting jig with 2 pins. I held retractors in position while Tripp JORDAN performed the distal femoral resection through the guide area we now removed her distal femoral cutting guide. We now placed our 4-in-1 femoral cutting block and positioned and it was secured with 2 pins by Tripp JORDAN while I held the block in position. The distal femoral finishing was now completed. A proximal tibial cutting guide was positioned. I held the guide in the appropriate position with both hands well Tripp JORDAN inserted stabilizing pins into the guide. Proximal tibial cut was made trying to minimize the lateral bone resection. I now took the knee into full extension removed any residual meniscal tissue. Again continue my extensive medial release attempting to balance the knee. I was able to perform enough of an extensive medial release to allow for appropriate soft tissue balancing. I now turned my attention to the proximal tibia. Appropriate retractors placed proximal tibia. I began with intramedullary drill holes getting to a size 16. We now began broaching our sleeves getting to a size 37 which had excellent intraoperative stability. I templated the tibia to a size 4. We placed a trial size 4 tibia position. I introduced a size 12.5 mm rotating platform position and introducer femoral component. I took the knee through range of motion and noted good stability throughout the entire arc of rotation. We now cut the patella flush along the patellar quad tendons. We drilled the appropriate holes and placed our trial position. I took the knee through range of motion noted good tracking of the patella. All trial components were removed. At this point appropriate size implants were chosen and opened. The joint was irrigated copiously with pulse lavage mechanical irrigation. The posterior capsule was infiltrated with local analgesic. The wound was irrigated with pulse lavage mechanical irrigation. We mixed antibiotic methylmethacrylate. We placed the knee into flexion. We placed multiple retractors assisted by Tripp JORDAN to expose the proximal tibia. Once the methyl methacrylate was ready, the tibial component was cemented into place removing any excess methylmethacrylate form by both myself and Tripp JORDAN. The femoral component was cemented into place removing the removing any excess methylmethacrylate performed by both myself and Tripp JORDAN. We then inserted the appropriate size polyethylene tibial insert. We made sure that it was locked into position. We took the knee into full extension, and then back in a flexion making sure we had removed any excess methylmethacrylate. The patellar component was then cemented down and secured with clamp. Excess methylmethacrylate removed. We kept the knee in full extension, patellar clamp in position until methylmethacrylate had hardened. Once it had hardened the patellar clamp was removed. The knee was taken through full range of motion. The patella tracked nicely. There was good soft tissue balancing. The tourniquet was now released. Additional hemostasis was achieved via electrocautery. A second gram of TXA was given. The wound again was irrigated with pulse lavage mechanical irrigation. The superficial soft tissues were infiltrated local analgesic. The extensor mechanism was repaired with Ethibond suture. We checked the repair with range of motion and it was stable. The subcutaneous soft tissues were repaired with Vicryl in layers. The skin was approximated with pernio/Dermabond. Sterile dressings were applied followed by loose web roll and Lucho bandage. The patient was transferred to a bed, and taken to recovery in stable and satisfactory condition. Tripp JORDAN assisted with this complex procedure.
[2023-04-02] MEDS ORDERED: ROPIVACAINE 0.75% 1,100 MG, SODIUM CHLORIDE 0.9% 500 ML 403 ML, EMPTY PAIN BALL 1 EACH MISCELLANE PRN ×2 (17:29)
--- NOTE | 2023-04-02 18:24 | XR ---
Left knee. HISTORY: Recent postop total left knee. COMPARISON: None TECHNIQUE: 2 views of left knee were obtained. There are multiple skin nikki indicating recent surgery. There is air within the joint space. There is a total left knee replacement which appears be in near anatomic alignment. There is no acute frac ture or dislocation. IMPRESSION: Total left knee as described above.
[2023-04-02] MEDS: ATORVASTATIN 40 MG TAB PO SCH (21:28)
[2023-04-02] MEDS: SENNOSIDES-DOCUSATE SODIUM 1 EACH TAB PO SCH (21:28)
[2023-04-02] MEDS: HYDROcodone/APAP 7.5-325MG 1 EACH TAB PO PRN (21:28)
[2023-04-02] MEDS: EZETIMIBE 10 MG TAB PO SCH (21:28)
[2023-04-02] MEDS: METOPROLOL TARTRATE 50 MG TAB PO SCH (22:04)
[2023-04-03 08:18] LABS: INR 1.1 (<1.2); Prothrombin Time 11.8 sec (10.0-12.5)
[2023-04-03] MEDS: HYDROcodone/APAP 7.5-325MG 1 EACH TAB PO PRN ×2 (08:18→20:48)
[2023-04-03] MEDS: allopurinoL 100 MG TAB PO SCH (08:18)
[2023-04-03] MEDS: METOPROLOL TARTRATE 50 MG TAB PO SCH ×2 (08:18→20:48)
[2023-04-03] MEDS: ENOXAPARIN 30 MG/0.3 ML SYRINGE SQ SCH ×2 (08:19→20:48)
[2023-04-03] MEDS: ASPIRIN 81 MG PO SCH (08:19)
[2023-04-03] MEDS: LACTATED RINGERS 1,000 ML IV SCH ×3 (08:19→15:01)
[2023-04-03] MEDS ORDERED: NON FORMULARY DRUG (Ubidecarenone [Co Q-10] 100 MG Capsule) PO SCH (09:00)
[2023-04-03] MEDS ORDERED: NON FORMULARY DRUG (Multivit-Min/Fa/Lycopen/Lutein [Centrum Silver Tablet] 1 EACH Tablet) PO SCH (09:00)
--- NOTE | 2023-04-03 10:21 | P.PN ---
Subjective Progress Note Date: 04/03/23 Principal diagnosis: Status post left total knee arthroplasty Patient evaluated today at bedside, his family members present. He did ambulate with physical therapy. He had a hard time initially ambulating, with the correction that was made at surgery it was very difficult for him initially to transition weightbearing on that leg. He does seem like its gotten a little bit easier after being up. His pain is well-controlled. He denies headaches, lightheadedness, chest pain or shortness of breath Objective - Vital Signs Vital signs: Vital Signs Temp 97.9 F 04/03/23 07:12 Pulse 73 04/03/23 07:12 Resp 20 04/03/23 07:12 BP 111/72 04/03/23 07:12 Pulse Ox 97 04/03/23 07:12 FiO2 Intake & Output 04/02/23 04/03/23 04/03/23 18:59 06:59 18:59 Intake Total 2050 1200 Output Total 345 2000 Balance 1706 -800 Weight 95.2 kg 95.2 kg Intake: IV 2050 Intake, IV Titration 1200 Amount Lactated Ringers 1,000 ml 1100 @ 100 mls/hr IV .Q10H FARIBA Rx#:[id number] ceFAZolin 2 gm In Sodium 100 Chloride 0.9% 50 ml @ 100 mls/hr IVPB Q8HR FARIBA Rx# :[id number] Output: Urine 260 2000 Uretheral (Hinson) 1700 Estimated Blood Loss 85 Other: Voiding Method Indwelling Catheter - Exam Left lower extremity: Incision is clean, dry, and intact. The foam dressing is in good condition. There is minimal soft tissue swelling and ecchymosis surrounding the medial and lateral aspects of the incision. Calf is soft, no tenderness with palpation. Plantar flexion, dorsiflexion, EHL, FHL are intact. Sensory exam to light touch throughout the extremity is intact, dorsal pedis pulses 2+. Assessment and Plan Assessment: Postoperative day #1 status post left total knee arthroplasty Plan: Pain control, continue with current medications DVT prophylaxis, continue current medications Wound care instructions were discussed, this to include On-Q pain catheter, icing and elevating and showering Encourage incentive spirometer Encouraged to continue PT/OT, recommend weight-bear as tolerated with walker Medical recommendations appreciated Discharge planning: Would like to keep patient in hospital for an additional night to work with physical therapy and gait training Time with Patient: Less than 30
[2023-04-03] MEDS: lisinopriL 5 MG TAB PO SCH (12:42)
[2023-04-03] MEDS: MULTIVITAMINS, THERA 1 EACH TAB PO SCH (12:42)
[2023-04-03 13:41] LABS: HCT 39.2 % (39.6-50.0); HGB 13.1 g/dL (13.0-17.0); MCH 29.9 pg (27.0-32.0); MCHC 33.4 g/dL (32.0-37.0); MCV 89.5 FL (80.0-97.0); Mean Platelet Volume 10.9 FL (9.5-12.2); NRBC Per 100 WBC 0 X 10*3/uL (0.00-0.01); Platelet Count 152 X 10*3/uL (140-440); RBC 4.38 X 10*6/uL (4.40-5.60); RDW 13.3 % (11.5-14.5); WBC 14.54 X 10*3/uL (4.50-10.00)
[2023-04-03 14:07] LABS: Basophils # (A) 0.01 X 10*3/uL (0.00-0.10); Basophils % (A) 0.1 %; Eosinophils # (A) 0.01 X 10*3/uL (0.04-0.35); Eosinophils % (A) 0.1 %; Lymphocytes # (A) 1.47 X 10*3/uL (0.90-5.00); Lymphocytes % (A) 10.1 %; Monocytes # (A) 1.54 X 10*3/uL (0.20-1.00); Monocytes % (A) 10.6 %; Neutrophils # (A) 11.44 X 10*3/uL (1.80-7.70); Neutrophils % (A) 78.6 %; RBC Morphology Normal (Normal)
[2023-04-03] MEDS: HYDROcodone/APAP 5-325MG 1 EACH TAB PO PRN (15:15)
--- NOTE | 2023-04-03 15:49 | P.CONS ---
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 Vani Villegas and we were asked to see the patient for postoperative medical management, patient is lying down in bed in no apparent distress, he denies any chest pain, or any shortness of breath at this time, he has no abdominal pain, nausea vomiting or diarrhea, he continues to have a On-Q pump in place, his pain is well-controlled, he was seen in consultation by physical therapy, he will spend another 24 hours in the hospital prior to his discharge home tomorrow morning. REVIEW OF SYSTEMS: Constitutional: No documented fever, no chills, no night sweats. No weight change. No weakness, fatigue or lethargy. No daytime sleepiness. EENT: No headache. No blurred vision or double vision, no loss of vision. No loss of Hearing, no ringing in the ears, no dizziness. No nasal drainage or congestion. No epistaxis. No sore throat. Lungs: No shortness of breath, no cough, no sputum production. No wheezing. Reports dyspnea with activity. Cardiovascular: No chest pain, no lower extremity edema. No palpitations. No paroxysmal nocturnal dyspnea. No orthopnea. No lightheadedness or dizziness. No syncopal episodes. Abdominal: Reports abdominal pain. No nausea, vomiting. No diarrhea. No constipation. No bloody or tarry stools reports loss of appetite. Genitourinary: No dysuria, increased frequency, urgency. No urinary retention. Musculoskeletal: No myalgias. No muscle weakness, no gait dysfunction, no frequent falls. No back pain. No neck pain. Integumentary: No wounds, no lesions. No rash or pruritus. No unusual bruising. No change in hair or nails. Neurologic: No aphasia. No facial droop. No change in mentation. No head injury. No headache. No paralysis. No paresthesia. Psychiatric: No depression. No anxiety. No mood swings. Endocrine: No abnormal blood sugars. No weight change. PAST MEDICAL HISTORY: Hypertension and hypertensive cardiovascular disease. Hyperlipidemia. Paroxysmal atrial fibrillation. Idiopathic gout. History of diffuse membranous glomerulonephritis with nephrotic syndrome. Osteoarthritis. PAST SURGICAL HISTORY: Right index finger surgery Right heel surgery Left heart catheterization Cardiac ablation 2016 Left total knee arthroplasty 04/02/2023 Colonoscopy 2019 SOCIAL HISTORY: Patient is a lifelong non-smoker he denies any alcohol ingestion, no drug use or abuse . FAMILY HISTORY: Father at the age of 80 from CAD and had CABG and CVA, mother is 88-year-old with history of osteoarthritis of both knees and had colon cancer, patient has 1 brother alive and okay and 3 sisters 2 with asthma PHYSICAL EXAMINATION: General: 67-year-old male in out of bed in no apparent distress. HEENT: Head is atraumatic, normocephalic, pupils were equal round reactive to light and recommendation, extraocular muscle movement were intact, sclera nonicteric, conjunctivae were pale, mucous membranes of the mouth are somewhat dry. Neck: Supple, no JVP, normal carotid upstroke bilaterally, no lymphadenopathy. Chest: Decreased breath sounds at the bases, few rhonchi, no expiratory wheezes, no chest wall tenderness, no intercostal retractions. Heart: First heart sound is normal, second heart sound is normal irregularly irregular with a systolic ejection murmur 2/6 located in the left sternal border. Abdomen: Soft, nontender, nondistended, positive bowel sounds. Extremities: There is no edema no calf tenderness DP +2 bilaterally, left knee with a dressing in place, minimal bruising. Neurologic examination: Patient is awake alert and oriented x3, cranial nerves II-12 appear grossly intact, muscle power were 5 out of 5 in upper extremities and 4 out of 5 in bilateral lower extremities, deep tendon reflexes normal bilaterally. ASSESSMENT AND PLAN: 1. Postoperative day # 1 status post left total knee arthroplasty. Patient was instructed to continue the use of incentive spirometer to reduce the incidence of atelectasis and healthcare associated pneumonia, continue current pain management, continue physical therapy and Occupational Therapy evaluation, continue patient on Coumadin keep his INR 2-3. Meanwhile continue Lovenox 30 mg subcutaneous every 12 hours until the INR therapeutic. 2. Hypertension and hypertensive cardiovascular disease. Continue patient on metoprolol 50 mg orally twice a day as well as lisinopril 5 mg orally once every day, monitor the patient blood pressure very closely. 3 . Mixed hyperlipidemia. Continue patient on rosuvastatin or its substitute atorvastatin 40 mg along with ezetimibe 10 mg once a day. 4. Idiopathic gout. Continue patient on Uloric 40 mg orally once every day. 5. Paroxysmal atrial fibrillation. Patient will be maintained on metoprolol 50 mg orally twice every day as well as restarting Coumadin 5 mg orally once every day and 7.5 mg Sunday and Sunday keep Lovenox 30 mg subcutaneous every 12 hours until INR is therapeutic. 6 . Osteoarthritis. Continue current pain management 7. DVT prophylaxis. Continue Lovenox 30 mg subcutaneously every 12 hours and Coumadin to keep his INR 2-3. Discontinue Lovenox when INR therapeutic. 8. GI prophylaxis. Continue PPI. 9. Thank you for the consult we will follow the patient with you. Past Medical History Past Medical History: Atrial Fibrillation, Hypertension, Renal Disease Additional Past Medical History / Comment(s): hx gout History of Any Multi-Drug Resistant Organisms: None Reported Past Surgical History: Heart Catheterization Additional Past Surgical History / Comment(s): I&D rt hand and rt foot Past Anesthesia/Blood Transfusion Reactions: No Reported Reaction Past Psychological History: No Psychological Hx Reported Smoking Status: Never smoker Past Alcohol Use History: Occasional Past Drug Use History: None Reported - Past Family History Father Family Medical History: Coronary Artery Disease (CAD), Diabetes Mellitus, Deep Vein Thrombosis (DVT), Pulmonary Embolus Additional Family Medical History / Comment(s): CABG Mother Family Medical History: Asthma, Cancer Additional Family Medical History / Comment(s): colon resection Medications and Allergies Home Medications Medication Instructions Recorded Confirmed Type Metoprolol Tartrate [Lopressor] 50 mg PO BID 05/11/18 04/02/23 History Multivit-Min/FA/Lycopen/Lutein 1 tab PO DAILY 05/11/18 04/02/23 History [Centrum Silver Tablet] Vitamin E (Dl,Tocopheryl Acet) 400 unit PO DAILY 05/11/18 04/02/23 History [Vitamin E (400 Iu = 180 mg)] Warfarin Sodium [Coumadin] 5 mg PO SUTUTHSA 05/11/18 04/02/23 History Warfarin Sodium [Coumadin] 7.5 mg PO MOWEFR 05/11/18 04/02/23 History lisinopriL [Zestril] 5 mg PO 1200 05/11/18 04/02/23 History Aspirin 81 mg PO DAILY 05/12/18 04/02/23 History Febuxostat [Uloric] 40 mg PO QAM 12/18/18 04/02/23 History Ubidecarenone [Co Q-10] 100 mg PO DAILY 12/18/18 04/02/23 History Ezetimibe [Zetia] 10 mg PO HS 03/26/23 04/02/23 History Rosuvastatin Calcium 20 mg PO HS 03/26/23 04/02/23 History Allergies Allergy/AdvReac Type Severity Reaction Status Date / Time No Known Allergies Allergy Verified 04/02/23 14:21 Physical Exam Vitals: Vital Signs Temp Pulse Pulse Resp BP Pulse Ox 04/03/23 14:00 97.5 F L 82 19 108/67 94 L 04/03/23 12:43 80 112/72 04/03/23 07:12 97.9 F 73 20 111/72 97 04/03/23 02:00 97.6 F 82 107/62 95 04/02/23 20:08 98 16 125/80 95 04/02/23 19:39 95 04/02/23 19:30 89 20 115/77 95 04/02/23 19:00 85 18 114/76 95 04/02/23 18:30 85 14 118/80 95 04/02/23 18:15 83 14 113/81 96 04/02/23 18:00 82 14 116/79 94 L 04/02/23 17:45 87 14 112/73 93 L 04/02/23 17:30 97.0 F L 89 14 115/77 94 L Intake and Output 04/03/23 04/03/23 04/03/23 06:59 14:59 22:59 Intake Total 1200 Output Total 1700 Balance -500 Intake: Intake, IV Titration 1200 Amount Lactated Ringers 1,000 ml 1100 @ 100 mls/hr IV .Q10H [facility] Rx#:[id number] ceFAZolin 2 gm In Sodium 100 Chloride 0.9% 50 ml @ 100 mls/hr IVPB Q8HR [facility] Rx# :[id number] Output: Urine 1700 Uretheral ([place]) 1700 Results CBC & Chem 7: 04/03/23 05:57 Labs: Abnormal Lab Results - Last 24 Hours (Table) 04/03/23 Range/Units 05:57 WBC 14.54 H (4.50-10.00) X 10*3/uL RBC 4.38 L (4.40-5.60) X 10*6/uL Hct 39.2 L (39.6-50.0) % Immature Gran # 0.07 H (0.00-0.04) X 10*3/uL Neutrophils # 11.44 H (1.80-7.70) X 10*3/uL Monocytes # 1.54 H (0.20-1.00) X 10*3/uL Eosinophils # 0.01 L (0.04-0.35) X 10*3/uL
[2023-04-03] MEDS ORDERED: WARFARIN 7.5 MG TAB PO ONE (18:00)
[2023-04-03] MEDS: EZETIMIBE 10 MG TAB PO SCH (20:48)
[2023-04-03] MEDS: ATORVASTATIN 40 MG TAB PO SCH (20:48)
[2023-04-03] MEDS: SENNOSIDES-DOCUSATE SODIUM 1 EACH TAB PO SCH (20:48)
[2023-04-04] MEDS: LACTATED RINGERS 1,000 ML IV SCH ×3 (00:49→12:06)
[2023-04-04] MEDS: HYDROcodone/APAP 7.5-325MG 1 EACH TAB PO PRN (04:32)
[2023-04-04 07:46] VITALS: BP 109/73; PULSE 88; RESP 20; TEMP 98.5
[2023-04-04] MEDS: allopurinoL 100 MG TAB PO SCH (08:59)
[2023-04-04] MEDS: ENOXAPARIN 30 MG/0.3 ML SYRINGE SQ SCH (08:59)
[2023-04-04] MEDS: METOPROLOL TARTRATE 50 MG TAB PO SCH (08:59)
[2023-04-04] MEDS: ASPIRIN 81 MG PO SCH (08:59)
[2023-04-04 11:04] LABS: Basophils # (A) 0.03 X 10*3/uL (0.00-0.10); Basophils % (A) 0.2 %; Eosinophils # (A) 0.05 X 10*3/uL (0.04-0.35); Eosinophils % (A) 0.4 %; HGB 11.9 g/dL (13.0-17.0); Lymphocytes # (A) 1.53 X 10*3/uL (0.90-5.00); Lymphocytes % (A) 10.9 %; MCH 29.7 pg (27.0-32.0); MCHC 33.1 g/dL (32.0-37.0); MCV 89.8 FL (80.0-97.0); Mean Platelet Volume 11.1 FL (9.5-12.2); Monocytes # (A) 1.43 X 10*3/uL (0.20-1.00); Monocytes % (A) 10.2 %; NRBC Per 100 WBC 0 X 10*3/uL (0.00-0.01); Neutrophils # (A) 10.95 X 10*3/uL (1.80-7.70); Neutrophils % (A) 77.9 %; Platelet Count 147 X 10*3/uL (140-440); RBC 4.01 X 10*6/uL (4.40-5.60); RDW 13.6 % (11.5-14.5); WBC 14.04 X 10*3/uL (4.50-10.00)
--- NOTE | 2023-04-04 11:31 | P.PN ---
Subjective Progress Note Date: 04/04/23 Principal diagnosis: Status post left total knee arthroplasty Patient evaluated today at bedside, his family members present. He did ambulate with physical therapy. Patient is doing a lot better today with physical therapy. He feels more comfortable ambulating. He is eager to be discharged to home with home care. He denies headaches, lightheadedness, chest pain or shortness of breath Objective - Vital Signs Vital signs: Vital Signs Temp 98.5 F 04/04/23 07:33 Pulse 88 04/04/23 07:33 Resp 20 04/04/23 07:33 BP 109/73 04/04/23 07:33 Pulse Ox 93 L 04/04/23 07:33 FiO2 Intake & Output 04/03/23 04/04/23 04/04/23 18:59 06:59 18:59 Intake Total 50 Balance 50 Intake: Intake, IV Titration 50 Amount ceFAZolin 2 gm In Sodium 50 Chloride 0.9% 50 ml @ 100 mls/hr IVPB Q8HR [facility] Rx# :[id number] Other: # Voids 5 1 - Exam Left lower extremity: Incision is clean, dry, and intact. Foam dressing was changed today at bedside.. There is minimal soft tissue swelling and ecchymosis surrounding the medial and lateral aspects of the incision. Calf is soft, no tenderness with pa lpation. Plantar flexion, dorsiflexion, EHL, FHL are intact. Sensory exam to light touch throughout the extremity is intact, dorsal pedis pulses 2+. - Labs CBC & Chem 7: 04/04/23 06:02 Labs: Abnormal Lab Results - Last 24 Hours (Table) 04/03/23 04/04/23 Range/Units 05:57 06:02 WBC 14.54 H 14.04 H (4.50-10.00) X 10*3/uL RBC 4.38 L 4.01 L (4.40-5.60) X 10*6/uL Hgb 11.9 L (13.0-17.0) g/dL Hct 39.2 L 36.0 L (39.6-50.0) % Immature Gran # 0.07 H 0.05 H (0.00-0.04) X 10*3/uL Neutrophils # 11.44 H 10.95 H (1.80-7.70) X 10*3/uL Monocytes # 1.54 H 1.43 H (0.20-1.00) X 10*3/uL Eosinophils # 0.01 L (0.04-0.35) X 10*3/uL Assessment and Plan Assessment: Postoperative day #2 status post left total knee arthroplasty Plan: Pain control, plan for discharge home with [place] 7.5mg/325mg DVT prophylaxis, Lovenox 30 twice per day until INR is therapeutic, will resume normal Coumadin Wound care instructions were discussed, this to include On-Q pain catheter, icing and elevating and showering Encourage incentive spirometer Encouraged to continue PT/OT, recommend weight-bear as tolerated with walker Medical recommendations appreciated Discharge planning: plan for discharge home today with home health care Time with Patient: Less than 30
[2023-04-04 11:32] LABS: ALT 19 U/L (10-49); AST 34 U/L (14-35); Albumin 3.2 g/dL (3.8-4.9); Albumin/Globulin Ratio 1.23 Ratio (1.60-3.17); Alkaline Phosphatase 41 U/L (41-126); BUN/Creat Ratio 17.31 Ratio (12.00-20.00); Blood Urea Nitrogen 22.5 mg/dL (9.0-27.0); Calcium 8.4 mg/dL (8.7-10.3); Carbon Dioxide 21.2 mmol/L (21.6-31.8); Chloride 104 mmol/L (96-109); Globulin 2.6 g/dL (1.6-3.3); Glucose 146 mg/dL (70-110); Potassium 4.1 mmol/L (3.5-5.5); Sodium 136 mmol/L (135-145); Total Bilirubin 0.5 mg/dL (0.3-1.2); Total Protein 5.8 g/dL (6.2-8.2)
--- NOTE | 2023-04-04 11:35 | P.DS ---
Providers Date of admission: 04/03/23 13:03 Expected date of discharge: 04/04/23 Attending physician: Patrick Baptiste Consults: 04/02/23 17:16 Consult Physician Routine Consulting Provider: Michaela Velázquez Consult Reason/Comments: Medical management Do you want consulting provider notified?: Yes Primary care physician: Michaela Velázquze Hospital Course: Date of admission: 04/02/2023 Date of discharge: 04/04/2023 Admission diagnosis: Status post left total knee arthroplasty Discharge diagnosis: Same Attending physician: Dr. Baptiste Surgical procedures: Left total knee arthroplasty Brief history: Patient is a 67-year-old male with a history of progressive primary left knee osteoarthritis. At this point patient has failed conservative treatment measures and has opted to proceed with a elective left total knee arthroplasty. Hospital course: Details of patient's surgery can be found in operative report. Patient tolerated the procedure well and was subsequently transported to orthopedic floor. Patient's orthopeidc and medical care was provided daily. Patient had daily laboratory tests performed for evaluation of overall blood counts. Patient had daily physical therapy to include strengthening range of motion as well as education with walker ambulation. Patient was treated with Lovenox and Coumadin for their postoperative DVT prophylaxis during their inpatient stay. Patient was noted to have a relatively uneventful postoperative course. Patient reported satisfactory pain control with oral pain medications by postoperative day 1. Patient showed satisfactory progress with physical therapy. Patient moved steadily through the program and had no difficulty meeting the goals by postoperative day 2. Given patient's otherwise satisfactory course and having met physical therapy goals, plan is to discharge patient home on postoperative day 2. Discharge condition/disposition: Patient will be discharged home in stable condition. Discharge medications: Instructions are given on resumption of patient's normal daily medications per primary care recommendation, in addition patient will be prescribed [place] 7.5 mg / 325 mg, senna S, Lovenox 30 mg. Discharge instructions: 1. Wound care and infection precautions, keep incision dry and covered while showering, no lotions, creams, moisturizers. No soaking, tubs, pools, hottubs. Do not scrub over the incision. 2. Weight-bear as tolerated with walker / cane until follow-up. 3. Ice and elevate when necessary. Do not exceed 20 minutes per hour with ice pack. 4. Utilize compression sleeve until seen at first follow up appointment. 5. Visiting nursing care. 6. Home physical therapy including home CPM. 7. Pain meds and anticoagulants per prescription. 8. Pain medication has potential to cause constipation. Increase oral fluid and fiber intake. Contact primary care provider if you have not had a bowel movement within 48 hours after discharge 9. No anti-inflammatory medication until discussed at first post operative visit, this including Motrin, Aleve, Mobic, Diclofenac. 10. Follow up in office at 2 weeks postop with Tripp Ndiaye PA-C/Reese Paul 11. Follow up with your primary care doctor 7-10 days after discharge. 12. Contact [facility] with any questions, . Procedures: Left total knee arthroplasty Patient Condition at Discharge: Good Plan - Discharge Summary Discharge Rx Participant: Yes New Discharge Prescriptions: New Enoxaparin [Lovenox] 30 mg SQ Q12H #14 each HYDROcodone/APAP 7.5-325MG [[place] 7.5] 1 each PO Q6HR PRN #28 tab PRN Reason: Pain Sennosides/Docusate Sodium [Senna-S 8.6-50 mg Tablet] 2 each PO DAILY PRN #30 tablet PRN Reason: Constipation No Action Vitamin E (Dl,Tocopheryl Acet) [Vitamin E (400 Iu = 180 mg)] 400 unit PO DAILY Multivit-Min/FA/Lycopen/Lutein [Centrum Silver Tablet] 1 tab PO DAILY Warfarin Sodium [Coumadin] 5 mg PO SUTUTHSA Warfarin Sodium [Coumadin] 7.5 mg PO MOWEFR lisinopriL [Zestril] 5 mg PO 1200 Metoprolol Tartrate [Lopressor] 50 mg PO BID Aspirin 81 mg PO DAILY Febuxostat [Uloric] 40 mg PO QAM Ubidecarenone [Co Q-10] 100 mg PO DAILY Ezetimibe [Zetia] 10 mg PO HS Rosuvastatin Calcium 20 mg PO HS Discharge Medication List Metoprolol Tartrate [Lopressor] 50 mg PO BID 05/11/18 [History] Multivit-Min/FA/Lycopen/Lutein [Centrum Silver Tablet] 1 tab PO DAILY 05/11/18 [History] Vitamin E (Dl,Tocopheryl Acet) [Vitamin E (400 Iu = 180 mg)] 400 unit PO DAILY 05/11/18 [History] Warfarin Sodium [Coumadin] 5 mg PO SUTUTHSA 05/11/18 [History] Warfarin Sodium [Coumadin] 7.5 mg PO MOWEFR 05/11/18 [History] lisinopriL [Zestril] 5 mg PO 1200 05/11/18 [History] Aspirin 81 mg PO DAILY 05/12/18 [History] Febuxostat [Uloric] 40 mg PO QAM 12/18/18 [History] Ubidecarenone [Co Q-10] 100 mg PO DAILY 12/18/18 [History] Ezetimibe [Zetia] 10 mg PO HS 03/26/23 [History] Rosuvastatin Calcium 20 mg PO HS 03/26/23 [History] Enoxaparin [Lovenox] 30 mg SQ Q12H #14 each 04/04/23 [Rx] HYDROcodone/APAP 7.5-325MG [[place] 7.5] 1 each PO Q6HR PRN #28 tab 04/04/23 [Rx] Sennosides/Docusate Sodium [Senna-S 8.6-50 mg Tablet] 2 each PO DAILY PRN #30 tablet 04/04/23 [Rx] Follow up Appointment(s)/Referral(s): [facility],Equipment [NON-STAFF] - As Needed (Please call [facility] once home to arrange delivery of the Continuous Passive Motion (CPM) machine. ) [facility], [NON-STAFF] - 1-2 Days ([facility] will call you to schedule your in home nursing and physical therapy visits. ) Bernabe Ndiaye PAC [PHYSICIAN SHEEP OR CALF GRADER] - 04/20/23 11:20 am Ambulatory/Diagnostic Orders: Prothrombin Time INR [LAB.AMB] Location: None Selected Patient Instructions/Handouts: *Surgery [facility] - On-Q Pain Pump Discharge Instruct ions Activity/Diet/Wound Care/Special Instructions: Orthopedic Discharge Instructions: 1. Wound care and infection precautions, keep incision dry and covered while showering, no lotions, creams, moisturizers. No soaking, pools, hot tubs. Do not scrub over incision. 2. Weight-bear as tolerated with walker / cane until follow-up. 3. Ice and elevate when necessary. Do not exceed 20 minutes per hour with ice pack. 4. Utilize compression sleeve until seen at first follow up appointment. 5. Pain meds and anticoagulants per prescription. 6. Pain medication has potential to cause constipation. Increase oral fluid and fiber intake. Contact primary care provider if you have not had a bowel movement within 48 hours after discharge. 7. No anti-inflammatory medication until discussed at first post operative visit, this including Motrin, Aleve, Mobic, Diclofenac. 8. Follow up in office at 2 weeks postop with Tripp Ndiaye PA-C/Reese Matos PA-C 9. Follow up with your primary care doctor 7-10 days after discharge. 10. Contact [facility] with any questions, . Wound care instructions: 1. Okay to remove surgical dressing as of 04/09/2023 2. Okay to shower directly over the incision after removal of dressing Discharge Disposition: HOME WITH HOME HEALTH SERVICES
[2023-04-04 11:47] LABS: INR 1.24 sec (0.93-1.11); Prothrombin Time 13.2 sec (9.9-11.9)
[2023-04-04] MEDS: HYDROcodone/APAP 5-325MG 1 EACH TAB PO PRN (12:31)
[2023-04-04] MEDS: lisinopriL 5 MG TAB PO SCH (12:33)
[2023-04-04] MEDS: MULTIVITAMINS, THERA 1 EACH TAB PO SCH (12:34)
--- NOTE | 2023-04-04 14:21 | P.PN ---
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 Vani Villegas and we were asked to see the patient for postoperative medical management, patient is lying down in bed in no apparent distress, he denies any chest pain, or any shortness of breath at this time, he has no abdominal pain, nausea vomiting or diarrhea, he continues to have a On-Q pump in place, his pain is well-controlled, he was seen in consultation by physical therapy, he will spend another 24 hours in the hospital prior to his discharge home tomorrow morning. 04/04: Patient is doing better , he is complaining of increased tightness in the area behind his left knee, ambulating with walker,no chest pain or shortness of breath, no abdominal pain, nausea, vomiting or diarrheam he has been able to void, he is likely will be discharged home today REVIEW OF SYSTEMS: Constitutional: No documented fever, no chills, no night sweats. No weight change. No weakness, fatigue or lethargy. No daytime sleepiness. EENT: No headache. No blurred vision or double vision, no loss of vision. No loss of Hearing, no ringing in the ears, no dizziness. No nasal drainage or co ngestion. No epistaxis. No sore throat. Lungs: No shortness of breath, no cough, no sputum production. No wheezing. Reports dyspnea with activity. Cardiovascular: No chest pain, no lower extremity edema. No palpitations. No paroxysmal nocturnal dyspnea. No orthopnea. No lightheadedness or dizziness. No syncopal episodes. Abdominal: Reports abdominal pain. No nausea, vomiting. No diarrhea. No constipation. No bloody or tarry stools reports loss of appetite. Genitourinary: No dysuria, increased frequency, urgency. No urinary retention. Musculoskeletal: No myalgias. No muscle weakness, no gait dysfunction, no frequent falls. No back pain. No neck pain. Integumentary: No wounds, no lesions. No rash or pruritus. No unusual bruising. No change in hair or nails. Neurologic: No aphasia. No facial droop. No change in mentation. No head injury. No headache. No paralysis. No paresthesia. Psychiatric: No depression. No anxiety. No mood swings. Endocrine: No abnormal blood sugars. No weight change. PHYSICAL EXAMINATION: General: 67-year-old male in out of bed in no apparent distress. HEENT: Head is atraumatic, normocephalic, pupils were equal round reactive to light and recommendation, extraocular muscle movement were intact, sclera nonicteric, conjunctivae were pale, mucous membranes of the mouth are somewhat dry. Neck: Supple, no JVP, normal carotid upstroke bilaterally, no lymphadenopathy. Chest: Decreased breath sounds at the bases, few rhonchi, no expiratory wheezes, no chest wall tenderness, no intercostal retractions. Heart: First heart sound is normal, second heart sound is normal irregularly irregular with a systolic ejection murmur 2/6 located in the left sternal border. Abdomen: Soft, nontender, nondistended, positive bowel sounds. Extremities: There is no edema no calf tenderness DP +2 bilaterally, left knee with a dressing in place, minimal bruising. Neurologic examination: Patient is awake alert and oriented x3, cranial nerves II-12 appear grossly intact, muscle power were 5 out of 5 in upper extremities and 4 out of 5 in bilateral lower extremities, deep tendon reflexes normal bilaterally. ASSESSMENT AND PLAN: 1. Postoperative day # 2 status post left total knee arthroplasty. Patient was instructed to continue the use of incentive spirometer to reduce the incidence of atelectasis and healthcare associated pneumonia, continue current pain management, continue physical therapy and Occupational Therapy evaluation, continue patient on Coumadin keep his INR 2-3. Meanwhile continue Lovenox 30 mg subcutaneous every 12 hours until the INR therapeutic. 2. Hypertension and hypertensive cardiovascular disease. Continue patient on metoprolol 50 mg orally twice a day as well as lisinopril 5 mg orally once every day, monitor the patient blood pressure very closely. 3 . Mixed hyperlipidemia. Continue patient on rosuvastatin or its substitute atorvastatin 40 mg along with ezetimibe 10 mg once a day. 4. Idiopathic gout. Continue patient on Uloric 40 mg orally once every day. 5. Paroxysmal atrial fibrillation. Patient will be maintained on metoprolol 50 mg orally twice every day as well as restarting Coumadin 5 mg orally once every day and 7.5 mg Sunday and Sunday keep Lovenox 30 mg subcutaneous every 12 hours until INR is therapeutic. 6 . Osteoarthritis. Continue current pain management 7. DVT prophylaxis. Continue Lovenox 30 mg subcutaneously every 12 hours and Coumadin to keep his INR 2-3. Discontinue Lovenox when INR therapeutic. 8. GI prophylaxis. Continue PPI. 9. Medically stable for discharge Objective - Vital Signs Vital signs: Vital Signs Temp 98.5 F 04/04/23 07:33 Pulse 88 04/04/23 07:33 Resp 20 04/04/23 07:33 BP 109/73 04/04/23 07:33 Pulse Ox 93 L 04/04/23 07:33 FiO2 Intake & Output 04/03/23 04/04/23 04/04/23 18:59 06:59 18:59 Intake Total 50 Balance 50 Intake: Intake, IV Titration 50 Amount ceFAZolin 2 gm In Sodium 50 Chloride 0.9% 50 ml @ 100 mls/hr IVPB Q8HR [facility] Rx# :[id number] Other: # Voids 5 1 - Labs CBC & Chem 7: 04/04/23 06:02 04/04/23 06:02 Labs: Abnormal Lab Results - Last 24 Hours (Table) 04/03/23 04/04/23 04/04/23 Range/Units 05:57 06:02 06:02 WBC 14.54 H 14.04 H (4.50-10.00) X 10*3/uL RBC 4.38 L 4.01 L (4.40-5.60) X 10*6/uL Hgb 11.9 L (13.0-17.0) g/dL Hct 39.2 L 36.0 L (39.6-50.0) % Immature Gran # 0.07 H 0.05 H (0.00-0.04) X 10*3/uL Neutrophils # 11.44 H 10.95 H (1.80-7.70) X 10*3/uL Monocytes # 1.54 H 1.43 H (0.20-1.00) X 10*3/uL Eosinophils # 0.01 L (0.04-0.35) X 10*3/uL PT 13.2 H (9.9-11.9) sec INR 1.24 H (0.93-1.11) sec Carbon Dioxide (21.6-31.8) mmol/L Glucose (70-110) mg/dL Calcium (8.7-10.3) mg/dL Total Protein (6.2-8.2) g/dL Albumin (3.8-4.9) g/dL Albumin/Globulin Ratio (1.60-3.17) Ratio // Range/Units 06:02 WBC (4.50-10.00) X 10*3/uL RBC (4.40-5.60) X 10*6/uL Hgb (13.0-17.0) g/dL Hct (39.6-50.0) % Immature Gran # (0.00-0.04) X 10*3/uL Neutrophils # (1.80-7.70) X 10*3/uL Monocytes # (0.20-1.00) X 10*3/uL Eosinophils # (0.04-0.35) X 10*3/uL PT (9.9-11.9) sec INR (0.93-1.11) sec Carbon Dioxide 21.2 L (21.6-31.8) mmol/L Glucose 146 H (70-110) mg/dL Calcium 8.4 L (8.7-10.3) mg/dL Total Protein 5.8 L (6.2-8.2) g/dL Albumin 3.2 L (3.8-4.9) g/dL Albumin/Globulin Ratio 1.23 L (1.60-3.17) Ratio
[2023-04-04] MEDS ORDERED: WARFARIN 7.5 MG TAB PO SCH (18:00)
[2023-04-05] MEDS ORDERED: WARFARIN 5 MG TAB PO SCH (18:00)
--- NOTE | 2023-04-06 13:13 | P.ANPRN ---
Procedure Note - Anesthesia - Nerve Block Performed Left Adductor Canal Infusion Time Out Performed: Yes Date of Procedure: 04/02/23 Location of Patient: PreOp Indication: Acute Post-Operative Pain, Dx/Pain Location (Left knee), Requested by Surgeon Specifically requested for management of pain by DrSubha: Patrick Baptiste Sedation Type: Sedate with meaningful contact maintained Preparation: Sterile Prep, Sterile Dressing Position: Supine Needle Types: Pajunk Needle Gauge: 18, 21 Ultrasound used to visualize needle placement: Yes Ultrasound used to observe medication spread: Yes Injectate: 0.5% Ropivacaine (see comment for volume) (20 cc + 10 cc of NS) Blood Aspirated: No Pain Paresthesia on Injection Noted: No Resistance on Injection: Normal Image Stored and Saved: Yes Events: Uneventful and Well Tolerated Left iPack Single Time Out Performed: Yes Date of Procedure: 04/02/23 Location of Patient: PreOp Indication: Acute Post-Operative Pain, Dx/Pain Location (Left knee) Sedation Type: Sedate with meaningful contact maintained Preparation: Sterile Prep Position: Right Lateral Catheter: None Needle Types: Pajunk Needle Gauge: 21 Ultrasound used to visualize needle placement: Yes Ultrasound used to observe medication spread: Yes Injectate: 0.5% Ropivacaine (see comment for volume) (20 cc + 10 cc of NS) Blood Aspirated: No Pain Paresthesia on Injection Noted: No Resistance on Injection: Normal Image Stored and Saved: Yes Events: Uneventful and Well Tolerated
== END 2023-04-04 14:59 | disposition home health service (06) ==
LOC: OR 13:21 → 4SSUR 17:23 → OR 04-03 10:21 → 4SSUR 04-03 13:03
PROVIDERS: ADMIT Orthopaedic Surgery; ATTEND Orthopaedic Surgery
DX: M17.12 Unilateral primary osteoarthritis, left knee (principal); M21.162 Varus deformity, not elsewhere classified, left knee; M25.762 Osteophyte, left knee; G89.18 Other acute postprocedural pain; E78.2 Mixed hyperlipidemia; I48.0 Paroxysmal atrial fibrillation; I11.9 Hypertensive heart disease without heart failure; M10.00 Idiopathic gout, unspecified site; Z79.01 Long term (current) use of anticoagulants; Z79.82 Long term (current) use of aspirin; Z79.899 Other long term (current) drug therapy
CPT/HCPCS: 96361; 96365; 96366; 96372 ×2; 97530; 97161; 64999; 64448; 80053; 85025 ×2; 85610 ×2; 73560; 27447; G0378 ×3; C1776; C1713 ×2; C1751; J2250; J1100; J0690 ×3; J2405; J2001; J3010; J1650 ×2; J2795 ×2; J2704; J2371

== ENCOUNTER → 2023-07-04 | Outpatient (CLI) | payer MEDICARE, OTHER ==
[2023-07-04 14:41] LABS: Basophils # (A) 0.06 X 10*3/uL (0.00-0.10); Basophils % (A) 0.6 %; Eosinophils # (A) 0.24 X 10*3/uL (0.04-0.35); Eosinophils % (A) 2.3 %; HCT 48.7 % (39.6-50.0); HGB 15.9 g/dL (13.0-17.0); Lymphocytes # (A) 2.48 X 10*3/uL (0.90-5.00); Lymphocytes % (A) 23.8 %; MCH 29.4 pg (27.0-32.0); MCHC 32.6 g/dL (32.0-37.0); Monocytes # (A) 0.73 X 10*3/uL (0.20-1.00); NRBC Per 100 WBC 0 X 10*3/uL (0.00-0.01); Neutrophils # (A) 6.86 X 10*3/uL (1.80-7.70); Neutrophils % (A) 65.9 %; Platelet Count 246 X 10*3/uL (140-440); RBC 5.41 X 10*6/uL (4.40-5.60); RDW 13.9 % (11.5-14.5); WBC 10.41 X 10*3/uL (4.50-10.00)
[2023-07-04 15:39] LABS: BUN/Creat Ratio 18.67 Ratio (12.00-20.00); Blood Urea Nitrogen 22.4 mg/dL (9.0-27.0); Calcium 9.8 mg/dL (8.7-10.3); Carbon Dioxide 25.2 mmol/L (21.6-31.8); Chloride 103 mmol/L (96-109); Glucose 92 mg/dL (70-110); Potassium 4.7 mmol/L (3.5-5.5); Sodium 141 mmol/L (135-145)
[2023-07-04 16:05] LABS: INR 2.67 sec (0.93-1.11)
== END | disposition home or self-care (01) ==
LOC: LABPAT 08:43
PROVIDERS: ATTEND Orthopaedic Surgery
DX: Z22.322 Carrier or suspected carrier of Methicillin resistant Staphylococcus aureus (principal)
CPT/HCPCS: 36415; 80048; 85025; 85610; 87070

== ENCOUNTER 2023-07-16 07:50 | Day surgery (SDC) | payer MEDICARE, OTHER ==
[2023-07-11 16:05] VITALS: BMI 30.7
--- NOTE | 2023-07-16 07:40 | HP ---
HISTORY AND PHYSICAL DATE OF SCHEDULED SURGERY: 07/16/2023. HISTORY OF PRESENT ILLNESS: Sukumar Handley is a 67-year-old gentleman, seen with symptomatic right knee osteoarthritis. After having treatment options discussed, he elected to proceed with right total knee arthroplasty. Consent was obtained. Preoperative medical clearance had been previously provided by Dr. Velázquez. PAST MEDICAL HISTORY: Atrial fibrillation, hypertension, hyperlipidemia. PAST SURGICAL HISTORY: Left total knee arthroplasty. MEDICATIONS: 1. Aspirin. 2. Lisinopril. 3. Metoprolol. 4. Rosuvastatin. 5. Vitamins. ALLERGIES: None. SOCIAL HISTORY: The patient denies tobacco use. PHYSICAL EVALUATION OF THE RIGHT KNEE: Range of motion is negative 2 to 100 degrees. Mild effusion. Tenderness, medial joint line. Severe varus deformity. Crepitus, medial patellofemoral compartments with range of motion. Hip rotation without pain. Distal neurovascular exam is intact. IMAGING STUDIES: Radiographs of the right knee revealed severe osteoarthritic changes with a severe varus deformity. IMPRESSION: 1. Right knee osteoarthritis. 2. Hypertension. 3. Hyperlipidemia. PLAN: Right total knee arthroplasty. MMODL / IJN: [id number] /
[~2023-07-16 07:50] MED LIST changes: -ACETAMINOPHEN TAB 500 MG TAB PO PRN; -DEXAMETHASONE SOD PHOSPHATE 4 MG/ML 1 ML VIAL IV ONE; -MELOXICAM 7.5 MG TAB PO PRN; -MIDAZOLAM 2 MG/2 ML VIAL IV PRN; -ONDANSETRON 4 MG/2 ML VIAL IVP ONE
[2023-07-16] MEDS: LACTATED RINGERS 1,000 ML IV SCH ×2 (08:24→14:07)
[2023-07-16] MEDS: MELOXICAM 7.5 MG TAB PO PRN (08:45)
[2023-07-16] MEDS: DEXAMETHASONE SOD PHOSPHATE 4 MG/ML 1 ML VIAL IV ONE (08:45)
[2023-07-16] MEDS: ONDANSETRON 4 MG/2 ML VIAL IVP ONE (08:45)
[2023-07-16] MEDS: ACETAMINOPHEN TAB 500 MG TAB PO PRN (08:45)
[2023-07-16 09:20] LABS: INR 1.2 (<1.2); Prothrombin Time 12.3 sec (10.0-12.5)
[2023-07-16] MEDS: MIDAZOLAM 2 MG/2 ML VIAL IVP ONE (09:28)
[2023-07-16] MEDS ORDERED: ROPIVACAINE 5 MG/ML 30 ML VIAL ONE (10:02)
[2023-07-16] MEDS ORDERED: fentaNYL (PF) 50 MCG/ML 2 ML AMP ONE (10:02)
[2023-07-16] MEDS ORDERED: TRANEXAMIC 1,000 MG/100ML-NACL PREMIX BAG ONE (10:02)
[2023-07-16] MEDS ORDERED: PROPOFOL 10 MG/ML 20 ML VIAL IV ONE (10:02)
[2023-07-16] MEDS ORDERED: MIDAZOLAM 2 MG/2 ML VIAL ONE (10:02)
[2023-07-16] MEDS ORDERED: DEXAMETHASONE SOD PHOSPHATE 4 MG/ML 1 ML VIAL ONE (10:02)
[2023-07-16] MEDS ORDERED: PHENYLEPHRINE 10 MG/ML VIAL ONE (10:02)
[2023-07-16] MEDS: ceFAZolin 1,000 MG in SODIUM CHLORIDE 0.9% 1,000 ML IRRIGATION ONE ×2 (10:32→10:34)
[2023-07-16] MEDS: LACTATED RINGERS 1,000 ML IV ONE (11:04)
[2023-07-16] MEDS ORDERED: HYDROcodone/APAP 5-325MG 1 EACH TAB PO PRN (12:23)
[2023-07-16] MEDS ORDERED: HYDROmorphone 0.5 MG/0.5 ML SYRINGE IVP PRN ×3 (12:23)
[2023-07-16] MEDS ORDERED: ONDANSETRON 4 MG/2 ML VIAL IVP PRN (12:23)
[2023-07-16] MEDS ORDERED: NALOXONE 0.4 MG/ML 1 ML VIAL IV PRN (12:23)
--- NOTE | 2023-07-16 12:23 | P.OP ---
Date of Procedure: 07/16/23 Preoperative Diagnosis: Right knee osteoarthritis Postoperative Diagnosis: Right knee osteoarthritis Procedure(s) Performed: Right total knee arthroplasty Implants: 1. DePuy TC3 size 4 right cemented femur 2. DePuy MBT revision size 4 cemented tibial tray with a 37 mm metaphyseal sleeve and a 75 mm x 16 mm stem 3. DePuy Sigma polyethylene rotating TC3 size 4 10 mm tibial insert 4. DePuy 35 mm oval dome 3 peg patella Anesthesia: regional (Adductor canal catheter, iPAQ block), spinal Surgeon: Patrick Baptiste Turbine Inspector #1: Bernabe Ndiaye Estimated Blood Loss (ml): 50 Pathology: none sent Condition: stable Disposition: PACU Indications for Procedure: 67-year-old gentleman who was seen with severe right knee osteoarthritis along with a severe varus deformity. We discussed total knee arthroplasty, he was agreeable. Consent regarding procedure obtained. Operative Findings: See description of procedure Description of Procedure: Patient was taken to the operative suite after having an adductor canal catheter placed by the department of anesthesia. Patient underwent a spinal anesthetic by the department of anesthesia. Patient was given preoperative IV intake antibiotics and TXA. A well-padded tourniquet was placed about the [] lower extremity. The lower extremity was then prepped and draped in the normal sterile orthopedic fashion. The extremity was elevated, a tourniquet was insufflated to 300. A standard anterior incision was made sharply through skin. Dissection was taken down through the subcutaneous soft tissues down to the extensor mechanism. A medial arthrotomy was performed, patella was everted and knee was flexed. There was advanced osteoarthritis noted. Was a substantial varus deformity with severe loss of the medial tibial plateau. I felt that this would need a revision prosthetic replacement given the significant bone deficiency along the medial aspect of the knee. I introduced my distal intramedullary femoral drill. I then introduced the distal femoral cutting jig. Tripp JORDAN secured the cutting jig with 2 pins. I held retractors in position while Tripp JORDAN performed the distal femoral resection through the guide area we now removed her distal femoral cutting guide. We now placed our 4-in-1 femoral cutting block and positioned and it was secured with 2 pins by Tripp JORDAN while I held the block in position. I now placed the box cutting guide in position and made our appropriate PS box cut. The distal femoral finishing was now completed. A proximal tibial cutting guide was positioned. I held the guide in the appropriate position with both hands well Tripp JORDAN inserted stabilizing pins into the guide. Proximal tibial cut was made. I now began intramedullary reaming of the proximal tibia until I got to the appropriate size I then tapped down our appropriate broaches for a left metaphyseal seal sleeve. I now placed a trial tibial tray with her metaphyseal sleeve and are stem. We now placed a trial femoral component into position, along with an appropriate size tibial insert. We now took the knee through range of motion and had full extension good flexion and good overall soft tissue balance noted. The patella was everted and stabilized with 2 towel clips held by Tripp JORDAN while I performed a flush with patellar quad tendon utilizing a fresh sawblade. We templated the patella, appropriate drill holes were made. An appropriate trial patella was positioned, knee was taken through full range of motion with the patella tracking very nicely. I removed all trial components. At this point appropriate size implants were chosen and opened. The joint was irrigated copiously with pulse lavage mechanical irrigation. We now secured our metaphyseal sleeve to our tibial component and then secured our stem. The wound was irrigated with pulse lavage mechanical irrigation. We mixed antibiotic methylmethacrylate. We placed the knee into flexion. We placed multiple retractors assisted by Tripp JORDAN to expose the proximal tibia. Once the methyl methacrylate was ready, the tibial component was cemented into place removing any excess methylmethacrylate form by both myself and Tripp JORDAN. The femoral component was cemented into place removing the removing any excess methylmethacrylate performed by both myself and Tripp JORDAN. We then inserted the appropriate size polyethylene tibial insert. We made sure that it was locked into position. We took the knee into full extension, and then back in a flexion making sure we had removed any excess methylmethacrylate. The patellar component was then cemented down and secured with clamp. Excess methylmethacrylate removed. We kept the knee in full extension, patellar clamp in position until methylmethacrylate had hardened. Once it had hardened the patellar clamp was removed. The knee was taken through full range of motion. The patella tracked nicely. There was good soft tissue balancing. The tourniquet was now released. Additional hemostasis was achieved via electrocautery. A second gram of TXA was given. The wound again was irrigated with pulse lavage mechanical irrigation. The extensor mechanism was repaired with Ethibond suture. We checked the repair with range of motion and it was stable. The subcutaneous soft tissues were repaired with Vicryl in layers. The skin was approximated with pernio/Dermabond. Sterile dressings were applied followed by loose web roll and Lucho bandage. The patient was transferred to a bed, and taken to recovery in stable and satisfactory condition. Tripp JORDAN assisted with this complex procedure.
[2023-07-16] MEDS: ROPIVACAINE 1,100 MG, SODIUM CHLORIDE 0.9% 500 ML 330 ML, EMPTY PAIN BALL 1 EACH MISCELLANE PRN (12:50)
--- NOTE | 2023-07-16 13:27 | XR ---
EXAMINATION TYPE: XR knee limited RT DATE OF EXAM: 07/16/2023 COMPARISON: NONE TECHNIQUE: Two views submitted HISTORY: Post op FINDINGS: There is a prosthetic knee in near anatomic alignment. There is soft tissue edema and soft tissue e mphysema. Surgical nikki noted. IMPRESSION: 1. Postoperative change. Appears in near-anatomic alignment
[2023-07-16] MEDS: HYDROcodone/APAP 7.5-325MG 1 EACH TAB PO PRN (16:51)
[2023-07-16] MEDS: WARFARIN 5 MG TAB PO SCH (19:39)
[2023-07-16] MEDS: ENOXAPARIN 30 MG/0.3 ML SYRINGE SQ SCH (21:10)
[2023-07-16] MEDS: SENNOSIDES-DOCUSATE SODIUM 1 EACH TAB PO SCH (21:12)
[2023-07-16] MEDS: ATORVASTATIN 40 MG TAB PO SCH (21:12)
[2023-07-16] MEDS: METOPROLOL TARTRATE 50 MG TAB PO SCH (21:12)
[2023-07-16] MEDS: EZETIMIBE 10 MG TAB PO SCH (21:12)
[2023-07-16] MEDS: WARFARIN 7.5 MG TAB PO ONE (21:23)
--- NOTE | 2023-07-17 07:17 | P.PN ---
Progress Note - Text Progress Note Date: 07/17/23 patient was seen and evaluated at bedside. Status post postoperative day 1 for right total knee arthroplasty patient had adductor canal catheter for postop pain control. Patient rated pain at rest 3 out of 10 in severity. Patient describes pain is aching, throbbing type on the sides of the knee and back of the knee. Patient started walking with support. With activity patient pain levels are 5-6 out of 10 in severity. With the help of oral pain medications pain levels are tolerable. Patient denied any weakness/ numbness in lower extremities. patient denied any fever, pain over the catheter site. Physical exam: Patient vital signs stable Patient is alert awake oriented 3 responding to all questions appropriately Examination of the catheter site showed dressing intact, no leaking fluid around the catheter, no redness, no tenderness over the catheter insertion area. plan: status post postoperative day 1 for right total knee arthroplasty with adductor canal catheter for pain control. Patient was discussed to continue the medication at the rate of 8 mL per hour until the pump is completely empty and instructed the patient how to discontinue the catheter.
[2023-07-17] MEDS: ASPIRIN 81 MG PO SCH (07:50)
[2023-07-17] MEDS: allopurinoL 100 MG TAB PO SCH (07:50)
[2023-07-17] MEDS: CHOLECALCIFEROL 25 MCG (1000 IU) TABLET PO SCH (07:50)
[2023-07-17 08:12] VITALS: RESP 16
[2023-07-17 08:43] LABS: Basophils # (A) 0.02 X 10*3/uL (0.00-0.10); Basophils % (A) 0.1 %; Eosinophils # (A) 0 X 10*3/uL (0.04-0.35); Eosinophils % (A) 0 %; HCT 36.5 % (39.6-50.0); HGB 12.3 g/dL (13.0-17.0); Lymphocytes # (A) 1.39 X 10*3/uL (0.90-5.00); Lymphocytes % (A) 8.5 %; MCH 28.9 pg (27.0-32.0); MCHC 33.7 g/dL (32.0-37.0); MCV 85.9 FL (80.0-97.0); Mean Platelet Volume 9.8 FL (9.5-12.2); Monocytes # (A) 1.31 X 10*3/uL (0.20-1.00); NRBC Per 100 WBC 0 X 10*3/uL (0.00-0.01); Neutrophils # (A) 13.52 X 10*3/uL (1.80-7.70); Neutrophils % (A) 82.9 %; Platelet Count 177 X 10*3/uL (140-440); RBC 4.25 X 10*6/uL (4.40-5.60); RDW 13.7 % (11.5-14.5); WBC 16.32 X 10*3/uL (4.50-10.00)
[2023-07-17] MEDS ORDERED: NON FORMULARY DRUG (Ubidecarenone [Co Q-10] 100 MG Capsule) PO SCH (09:00)
[2023-07-17] MEDS ORDERED: NON FORMULARY DRUG (Multivit-Min/Fa/Lycopen/Lutein [Centrum Silver Tablet] 1 EACH Tablet) PO SCH (09:00)
--- NOTE | 2023-07-17 09:09 | P.ANPRN ---
Procedure Note - Anesthesia - Nerve Block Performed Right Adductor Canal Infusion Time Out Performed: Yes Date of Procedure: 07/16/23 Procedure Start Time: : Procedure Stop Time: :37 Location of Patient: PreOp Indication: Acute Post-Operative Pain, Requested by Surgeon Sedation Type: Sedate with meaningful contact maintained Preparation: Sterile Prep, Sterile Dressing Position: Supine Catheter: Indwelling Needle Types: Pajunk Needle Gauge: 21 Ultrasound used to visualize needle placement: Yes Ultrasound used to observe medication spread: Yes Blood Aspirated: No Pain Paresthesia on Injection Noted: No Resistance on Injection: Normal Image Stored and Saved: Yes Events: Uneventful and Well Tolerated (Ropivacaine 0.5% 20 cc plus dexamethasone 4 mg)
--- NOTE | 2023-07-17 09:11 | P.ANPRN ---
Procedure Note - Anesthesia - Nerve Block Performed Right Duncanck Single Time Out Performed: Yes Date of Procedure: 07/16/23 Procedure Start Time: 09:38 Procedure Stop Time: 09:41 Location of Patient: PreOp Indication: Acute Post-Operative Pain, Requested by Surgeon Sedation Type: Sedate with meaningful contact maintained Preparation: Sterile Prep Position: Supine Needle Types: Pajunk Needle Gauge: 21 Ultrasound used to visualize needle placement: Yes Ultrasound used to observe medication spread: Yes Blood Aspirated: No Pain Paresthesia on Injection Noted: No Resistance on Injection: Normal Image Stored and Saved: Yes Events: Uneventful and Well Tolerated (Ropivacaine 0.5% 25 cc plus dexamethasone 4 mg)
[2023-07-17 09:30] LABS: ALT 14 U/L (10-49); AST 17 U/L (14-35); Albumin 3.3 g/dL (3.8-4.9); Albumin/Globulin Ratio 1.18 Ratio (1.60-3.17); Alkaline Phosphatase 54 U/L (41-126); BUN/Creat Ratio 19.69 Ratio (12.00-20.00); Blood Urea Nitrogen 25.6 mg/dL (9.0-27.0); Calcium 8.6 mg/dL (8.7-10.3); Carbon Dioxide 20.9 mmol/L (21.6-31.8); Chloride 104 mmol/L (96-109); Globulin 2.8 g/dL (1.6-3.3); Glucose 145 mg/dL (70-110); Potassium 4.3 mmol/L (3.5-5.5); Sodium 137 mmol/L (135-145); Total Bilirubin 0.3 mg/dL (0.3-1.2); Total Protein 6.1 g/dL (6.2-8.2)
[2023-07-17 09:45] LABS: INR 1.16 sec (0.93-1.11); Prothrombin Time 12.4 sec (9.9-11.9)
--- NOTE | 2023-07-17 10:07 | P.CONS ---
History of Present Illness - Reason for Consult Consult date: 07/16/23 Medical management Requesting physician: Patrick Baptiste - Chief Complaint Status post right total knee arthroplasty. 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 Adalgisa gonsalez and we were asked to see the patient for postoperative medical management, patient is lying down in bed in no apparent distress, he denies any chest pain, or any shortness of breath at this time, he has no abdominal pain, nausea vomiting or diarrhea, he continues to have a On-Q pump in place, his pain is well-controlled, he was seen in consultation by physical therapy, he will spend another 24 hours in the hospital prior to his discharge home tomorrow morning. REVIEW OF SYSTEMS: Constitutional: No documented fever, no chills, no night sweats. No weight change. No weakness, fatigue or lethargy. No daytime sleepiness. EENT: No headache. No blurred vision or double vision, no loss of vision. No loss of Hearing, no ringing in the ears, no dizziness. No nasal drainage or congestion. No epistaxis. No sore throat. Lungs: No shortness of breath, no cough, no sputum production. No wheezing. Reports dyspnea with activity. Cardiovascular: No chest pain, no lower extremity edema. No palpitations. No paroxysmal nocturnal dyspnea. No orthopnea. No lightheadedness or dizziness. No syncopal episodes. Abdominal: Reports no abdominal pain. No nausea, vomiting. No diarrhea. No constipation. No bloody or tarry stools reports loss of appetite. Genitourinary: No dysuria, increased frequency, urgency. No urinary retention. Musculoskeletal: No myalgias. No muscle weakness, positive for gait dysfunction, no frequent falls. No back pain. No neck pain. Integumentary: right knee wound is covered with ABEBE wrap, no lesions. No rash or pruritus. No unusual bruising. No change in hair or nails. Neurologic: No aphasia. No facial droop. No change in mentation. No head injury. No headache. No paralysis. No paresthesia. Psychiatric: No depression. No anxiety. No mood swings. Endocrine: No abnormal blood sugars. No weight change. PAST MEDICAL HISTORY: Hypertension and hypertensive cardiovascular disease. Hyperlipidemia. Paroxysmal atrial fibrillation. Idiopathic gout. History of diffuse membranous glomerulonephritis with nephrotic syndrome. Osteoarthritis. PAST SURGICAL HISTORY: Right index finger surgery Right heel surgery Left heart catheterization Cardiac ablation 2016 Left total knee arthroplasty 04/02/2023 Colonoscopy 2019 SOCIAL HISTORY: Patient is a lifelong non-smoker he denies any alcohol ingestion, no drug use or abuse . FAMILY HISTORY: Father at the age of 80 from CAD and had CABG and CVA, mother is 88-year-old with history of osteoarthritis of both knees and had colon cancer, patient has 1 brother alive and okay and 3 sisters 2 with asthma PHYSICAL EXAMINATION: General: 67-year-old male in out of bed in no apparent distress. HEENT: Head is atraumatic, normocephalic, pupils were equal round reactive to light and recommendation, extraocular muscle movement were intact, sclera nonicteric, conjunctivae were pale, mucous membranes of the mouth are somewhat dry. Neck: Supple, no JVP, normal carotid upstroke bilaterally, no lymphadenopathy. Chest: Decreased breath sounds at the bases, few rhonchi, no expiratory wheezes, no chest wall tenderness, no intercostal retractions. Heart: First heart sound is normal, second heart sound is normal irregularly irregular with a systolic ejection murmur 2/6 located in the left sternal border. Abdomen: Soft, nontender, nondistended, positive bowel sounds. Extremities: There is no edema no calf tenderness DP +2 bilaterally, Right knee with a dressing in place, minimal bruising. Neurologic examination: Patient is awake alert and oriented x3, cranial nerves II-12 appear grossly intact, muscle power were 5 out of 5 in upper extremities and 4 out of 5 in bilateral lower extremities, deep tendon reflexes normal bilaterally. ASSESSMENT AND PLAN: 1. Postoperative day # 0 status post Right total knee arthroplasty. Patient was instructed to continue the use of incentive spirometer to reduce the incidence of atelectasis and healthcare associated pneumonia, continue current pain management, continue physical therapy and Occupational Therapy evaluation, continue patient on Coumadin keep his INR 2-3. Meanwhile continue Lovenox 30 mg subcutaneous every 12 hours until the INR therapeutic. 2. Hypertension and hypertensive cardiovascular disease. Continue patient on metoprolol 50 mg orally twice a day as well as lisinopril 5 mg orally once every day, monitor the patient blood pressure very closely. 3 . Mixed hyperlipidemia. Continue patient on rosuvastatin or its substitute atorvastatin 40 mg along with ezetimibe 10 mg once a day. 4. Idiopathic gout. Continue patient on Uloric 40 mg orally once every day. 5. Paroxysmal atrial fibrillation. Patient will be maintained on metoprolol 50 mg orally twice every day as well as restarting Coumadin 5 mg orally once every day and 7.5 mg Sunday and Sunday keep Lovenox 30 mg subcutaneous every 12 hours until INR is therapeutic. 6 . Osteoarthritis. Continue current pain management 7. DVT prophylaxis. Continue Lovenox 30 mg subcutaneously every 12 hours and Coumadin to keep his INR 2-3. Discontinue Lovenox when INR therapeutic. 8. GI prophylaxis. Continue PPI. 9. Thank you for the consult we will follow the patient with you. Past Medical History Past Medical History: Atrial Fibrillation, Hypertension, Renal Disease Additional Past Medical History / Comment(s): hx gout, renal disease was when he was in his 20's and nothing has progressed or become an issue History of Any Multi-Drug Resistant Organisms: None Reported Past Surgical History: Heart Catheterization, Joint Replacement Additional Past Surgical History / Comment(s): I&D rt hand and rt foot, left knee replaced, right knee replacement Past Anesthesia/Blood Transfusion Reactions: No Reported Reaction Past Psychological History: No Psychological Hx Reported Smoking Status: Never smoker Past Alcohol Use History: Occasional Past Drug Use History: None Reported - Past Family History Father Family Medical History: Coronary Artery Disease (CAD), Diabetes Mellitus, Deep Vein Thrombosis (DVT), Pulmonary Embolus Additional Family Medical History / Comment(s): CABG Mother Family Medical History: Asthma, Cancer Additional Family Medical History / Comment(s): colon resection Medications and Allergies Home Medications Medication Instructions Recorded Confirmed Type Metoprolol Tartrate [Lopressor] 50 mg PO BID 05/11/18 07/16/23 History Multivit-Min/FA/Lycopen/Lutein 1 tab PO DAILY 05/11/18 07/11/23 History [Centrum Silver Tablet] Vitamin E (Dl,Tocopheryl Acet) 400 unit PO DAILY 05/11/18 07/11/23 History [Vitamin E (400 Iu = 180 mg)] Warfarin Sodium [Coumadin] 5 mg PO SUTUTHSA 05/11/18 07/11/23 History Warfarin Sodium [Coumadin] 7.5 mg PO MOWEFR 05/11/18 07/11/23 History lisinopriL [Zestril] 5 mg PO 1200 05/11/18 07/16/23 History Aspirin 81 mg PO DAILY 05/12/18 07/11/23 History Febuxostat [Uloric] 40 mg PO QAM 12/18/18 07/16/23 History Ubidecarenone [Co Q-10] 200 mg PO DAILY 12/18/18 07/16/23 History Ezetimibe [Zetia] 10 mg PO 1900 03/26/23 07/16/23 History Rosuvastatin Calcium 20 mg PO 189903/26/23 07/16/23 History Cholecalciferol [Vitamin D3 (25 50 mcg PO DAILY 07/11/23 07/16/23 History Mcg = 1000 Iu)] Allergies Allergy/AdvReac Type Severity Reaction Status Date / Time No Known Allergies Allergy Verified 07/16/23 08:41 Physical Exam Vitals: Vital Signs Temp Pulse Resp BP Pulse Ox 07/16/23 15:15 69 106/72 96 07/16/23 14:40 65 109/71 95 07/16/23 14:25 66 112/72 97 07/16/23 14:10 69 118/76 93 L 07/16/23 13:55 62 112/72 97 07/16/23 13:50 62 114/73 97 07/16/23 13:35 97.4 F L 70 17 122/79 93 L 07/16/23 13:11 66 22 123/73 95 07/16/23 12:56 66 16 118/73 07/16/23 12:41 68 22 118/73 98 07/16/23 12:26 97.6 F 74 20 114/67 98 07/16/23 09:53 77 18 106/74 97 07/16/23 09:43 81 18 111/70 97 07/16/23 08:30 98.6 F 76 18 126/73 96 Intake and Output 07/16/23 07/16/23 07/16/23 06:59 14:59 22:59 Intake Total 951 440 Output Total 50 Balance 901 440 Intake: IV 951 Oral 440 Output: Estimated Blood Loss 50 Other: Weight 93 kg Results CBC & Chem 7: 07/17/23 04:37 07/17/23 04:37 Labs: Abnormal Lab Results - Last 24 Hours (Table) 07/16/23 Range/Units 08:46 INR 1.2 H (<1.2)
--- NOTE | 2023-07-17 10:51 | P.DS ---
Providers Date of admission: 07/16/2023 Expected date of discharge: 07/17/23 Attending physician: Patrick Baptiste Consults: 07/16/23 12:23 Consult Physician Routine Consulting Provider: Michaela Velázquez Consult Reason/Comments: Medical management Do you want consulting provider notified?: Yes Primary care physician: Michaela Velázquez Hospital Course: Date of admission: 07/16/2023 Date of discharge: 07/17/2023 Admission diagnosis: Right knee osteoarthritis Discharge diagnosis: Same Attending physician: Dr. Baptiste Surgical procedures: Right total knee arthroplasty Brief history: Patient is a 67-year-old male with a history of progressive primary right knee osteoarthritis. At this point patient has failed conservative treatment measures and has opted to proceed with a elective right total knee arthroplasty. Hospital course: Details of patient's surgery can be found in operative report. Patient tolerated the procedure well and was subsequently transported to orthopedic floor. Patient's orthopeidc and medical care was provided daily. Patient had daily laboratory tests performed for evaluation of overall blood counts. Patient had daily physical therapy to include strengthening range of motion as well as education with walker ambulation. Patient was treated with Lovenox for their postoperative DVT prophylaxis during their inpatient stay. Patient was noted to have a relatively uneventful postoperative course. Patient reported satisfactory pain control with oral pain medications by postoperative day 1. Patient showed satisfactory progress with physical therapy. Patient moved steadily through the program and had no difficulty meeting the goals by postoperative day 1. Given patient's otherwise satisfactory course and having met physical therapy goals, plan is to discharge patient home with health services on postoperative day 1. Discharge condition/disposition: Patient will be discharged home with health services in stable condition. Discharge medications: Instructions are given on resumption of patient's normal daily medications per primary care recommendation, in addition patient will be prescribed Mascot 7.5 mg / 325 mg; senna; DVT prophylaxis recommendations per medicine. Discharge instructions: 1. Wound care and infection precautions, keep incision dry and covered while showering, no lotions, creams, moisturizers. No soaking, tubs, pools, hottubs. Do not scrub over the incision. 2. Weight-bear as tolerated with walker / cane until follow-up. 3. Ice and elevate when necessary. Do not exceed 20 minutes per hour with ice pack. 4. Utilize compression sleeve until seen at first follow up appointment. 5. Visiting nursing care. 6. Home physical therapy including home CPM. 7. Pain meds and anticoagulants per prescription. 8. Pain medication has potential to cause constipation. Increase oral fluid and fiber intake. Contact primary care provider if you have not had a bowel movement within 48 hours after discharge 9. No anti-inflammatory medication until discussed at first post operative visit, this including Motrin, Aleve, Mobic, Diclofenac. 10. Follow up in office at 2 weeks postop with Tripp Ndiaye PA-C / Reese Matos PA-C 11. Follow up with your primary care doctor 7-10 days after discharge. 12. Contact [facility] with any questions, . Assessment: Right knee osteoarthritis Procedures: Right total knee arthroplasty Patient Condition at Discharge: Good Plan - Discharge Summary Discharge Rx Participant: Yes New Discharge Prescriptions: New Sennosides/Docusate Sodium [Senna Plus 8.6-50 mg Softgel] 1 each PO DAILY #20 capsule HYDROcodone/APAP 7.5-325MG [Mascot 7.5-325] 1 - 2 tab PO Q6HR PRN #36 tab PRN Reason: Pain Continue Aspirin 81 mg PO DAILY No Action Vitamin E (Dl,Tocopheryl Acet) [Vitamin E (400 Iu = 180 mg)] 400 unit PO DAILY Multivit-Min/FA/Lycopen/Lutein [Centrum Silver Tablet] 1 tab PO DAILY Warfarin Sodium [Coumadin] 5 mg PO SUTUTHSA Warfarin Sodium [Coumadin] 7.5 mg PO MOWEFR lisinopriL [Zestril] 5 mg PO 1200 Metoprolol Tartrate [Lopressor] 50 mg PO BID Febuxostat [Uloric] 40 mg PO QAM Ubidecarenone [Co Q-10] 200 mg PO DAILY Ezetimibe [Zetia] 10 mg PO 1900 Rosuvastatin Calcium 20 mg PO 1900 Cholecalciferol [Vitamin D3 (25 Mcg = 1000 Iu)] 50 mcg PO DAILY Discharge Medication List Metoprolol Tartrate [Lopressor] 50 mg PO BID 05/11/18 [History] Multivit-Min/FA/Lycopen/Lutein [Centrum Silver Tablet] 1 tab PO DAILY 05/11/18 [History] Vitamin E (Dl,Tocopheryl Acet) [Vitamin E (400 Iu = 180 mg)] 400 unit PO DAILY 05/11/18 [History] Warfarin Sodium [Coumadin] 5 mg PO SUTUTHSA 05/11/18 [History] Warfarin Sodium [Coumadin] 7.5 mg PO MOWEFR 05/11/18 [History] lisinopriL [Zestril] 5 mg PO 1200 05/11/18 [History] Aspirin 81 mg PO DAILY 05/12/18 [History] Febuxostat [Uloric] 40 mg PO QAM 12/18/18 [History] Ubidecarenone [Co Q-10] 200 mg PO DAILY 12/18/18 [History] Ezetimibe [Zetia] 10 mg PO 1900 03/26/23 [History] Rosuvastatin Calcium [place] [address]/26/23 [History] Cholecalciferol [Vitamin D3 (25 Mcg = 1000 Iu)] 50 mcg PO DAILY 07/11/23 [History] HYDROcodone/APAP 7.5-325MG [Mascot 7.5-325] 1 - 2 tab PO Q6HR PRN #36 tab 07/17/23 [Rx] Sennosides/Docusate Sodium [Senna Plus 8.6-50 mg Softgel] 1 each PO DAILY #20 capsule 07/17/23 [Rx] Follow up Appointment(s)/Referral(s): [facility],Equipment [NON-STAFF] - As Needed (Continuous Passive Motion knee machine) [facility], [NON-STAFF] - As Needed Bernabe Ndiaye PAC [PHYSICIAN SUPERVISOR TRAIN OPERATIONS] - 2 Weeks Patient Instructions/Handouts: Knee Replacement (DC), Knee Replacement (GEN) Activity/Diet/Wound Care/Special Instructions: Orthopedic Discharge Instructions: 1. Wound care and infection precautions, keep incision dry and covered while showering, no lotions, creams, moisturizers. No soaking, pools, hot tubs. Do not scrub over incision. 2. Weight-bear as tolerated with walker / cane until follow-up. 3. Ice and elevate when necessary. Do not exceed 20 minutes per hour with ice pack. 4. Utilize compression sleeve until seen at first follow up appointment. 5. Pain meds and anticoagulants per prescription. 6. Pain medication has potential to cause constipation. Increase oral fluid and fiber intake. Contact primary care provider if you have not had a bowel movement within 48 hours after discharge. 7. No anti-inflammatory medication until discussed at first post operative visit, this including Motrin, Aleve, Mobic, Diclofenac. 8. Follow up in office at 2 weeks postop with Tripp Ndiaye PA-C / Reese Matos PA-C 9. Follow up with your primary care doctor 7-10 days after discharge. 10. Contact [facility] with any questions, . Keep incision clean, dry, intact. While showering, cover dressing with Saran wrap. Keep dressing on until 07/23/2023. Once dressing is removed, it is okay to shower directly over incision. Discharge Disposition: HOME WITH HOME HEALTH SERVICES
--- NOTE | 2023-07-17 10:55 | P.PN ---
Subjective Progress Note Date: 07/17/23 Principal diagnosis: Right knee osteoarthritis Patient was seen at bedside this morning sitting up in chair with legs elevated and ice present over right knee with dressing. Patient says he just finished working with therapy and walked out in the hallway and up and down stairs. Patient says he does have a walker at home. Patient says he is looking forward to going home later today. Patient says Dr. Velázquez did come by this morning to see him and check with him about resuming Coumadin at home. Patient says he has urinated since surgery yesterday without issue. Patient says he has not had a bowel yet, however, patient says he has been passing gas. Patient denies chest pain, fever, shortness of breath, nausea, vomiting, change in vision, loss of bowel/bladder control. Objective - Vital Signs Vital signs: Vital Signs Temp 98.5 F 07/17/23 07:20 Pulse 71 07/17/23 07:20 Resp 16 07/17/23 07:20 BP 106/67 07/17/23 07:20 Pulse Ox 94 L 07/17/23 07:20 FiO2 Intake & Output 07/16/23 07/17/23 07/17/23 18:59 06:59 18:59 Intake Total 1391 480 200 Output Total 50 1900 Balance 1341 -1420 200 Weight 93 kg Intake: IV 951 Oral 440 480 200 Output: Urine 1900 Estimated Blood Loss 50 Other: Voiding Method Bedpan - Exam Right knee: Incision is clean, dry, and intact. The silver foam dressing is in good condition. There is minimal soft tissue swelling and ecchymosis surrounding the medial and lateral aspects of the incision. Calf is soft, no tenderness with palpation. Plantar flexion, dorsiflexion, EHL, FHL are intact. Sensory exam to light touch throughout the extremity is intact, dorsal pedis pulses 2+. - Labs CBC & Chem 7: 07/17/23 04:37 07/17/23 04:37 Labs: Abnormal Lab Results - Last 24 Hours (Table) 07/17/23 07/17/23 07/17/23 Range/Units 04:37 04:37 04:37 WBC 16.32 H (4.50-10.00) X 10*3/uL RBC 4.25 L (4.40-5.60) X 10*6/uL Hgb 12.3 L (13.0-17.0) g/dL Hct 36.5 L (39.6-50.0) % Immature Gran # 0.08 H (0.00-0.04) X 10*3/uL Neutrophils # 13.52 H (1.80-7.70) X 10*3/uL Monocytes # 1.31 H (0.20-1.00) X 10*3/uL Eosinophils # 0 L (0.04-0.35) X 10*3/uL PT 12.4 H (9.9-11.9) sec INR 1.16 H (0.93-1.11) sec Carbon Dioxide 20.9 L (21.6-31.8) mmol/L Anion Gap 12.10 H (4.00-12.00) mmol/L Glucose 145 H (70-110) mg/dL Calcium 8.6 L (8.7-10.3) mg/dL Total Protein 6.1 L (6.2-8.2) g/dL Albumin 3.3 L (3.8-4.9) g/dL Albumin/Globulin Ratio 1.18 L (1.60-3.17) Ratio Assessment and Plan Assessment: 1. Right knee osteoarthritis -Postop day 1 status post right total knee arthroplasty Plan: 1. Right knee osteoarthritis -right total knee arthroplasty form yesterday, 07/16/2023. Patient stable at bedside this morning. Patient did do well with PT/OT this morning. Patient does have a walker at home. Discharge home today with health services. 2. Appreciate medical management 3. Pain management -[place] 4. GI prophylaxis -senna 5. DVT prophylaxis -okay to resume Coumadin per medicine recommendations 6. PT/OT -weightbearing as tolerated with walker 7. Encourage incentive spirometer use 8. Discharge planning -home today with health services Time with Patient: Less than 30
--- NOTE | 2023-07-17 12:48 | P.PN ---
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 Baptiste and we were asked to see the patient for postoperative medical management, patient is lying down in bed in no apparent distress, he denies any chest pain, or any shortness of breath at this time, he has no abdominal pain, nausea vomiting or diarrhea, he continues to have a On-Q pump in place, his pain is well-controlled, he was seen in consultation by physical therapy, he will spend another 24 hours in the hospital prior to his discharge home tomorrow morning. 07/16: Patient is sitting up in a chair no apparent distress, his pain is well- controlled, he is using incentive spirometer regularly, he is ambulating using his walker, he has minimal swelling in the right lower extremity, his incision appears to be good with no evidence of any erythema or drainage, he continues to have the On-Q pump in place, he will be discharged home later on today, patient was instructed to continue with his Coumadin the same dose, and follow-up with me as an outpatient in 1 to 2 weeks to recheck his INR again. REVIEW OF SYSTEMS: Constitutional: No documented fever, no chills, no night sweats. No weight change. No weakness, fatigue or lethargy. No daytime sleepiness. EENT: No headache. No blurred vision or double vision, no loss of vision. No loss of Hearing, no ringing in the ears, no dizziness. No nasal drainage or congestion. No epistaxis. No sore throat. Lungs: No shortness of breath, no cough, no sputum production. No wheezing. Reports dyspnea with activity. Cardiovascular: No chest pain, no lower extremity edema. No palpitations. No paroxysmal nocturnal dyspnea. No orthopnea. No lightheadedness or dizziness. No syncopal episodes. Abdominal: Reports no abdominal pain. No nausea, vomiting. No diarrhea. No constipation. No bloody or tarry stools reports loss of appetite. Genitourinary: No dysuria, increased frequency, urgency. No urinary retention. Musculoskeletal: No myalgias. No muscle weakness, positive for gait dysfunction, no frequent falls. No back pain. No neck pain. Integumentary: right knee wound is covered with ABEBE wrap, no lesions. No rash or pruritus. No unusual bruising. No change in hair or nails. Neurologic: No aphasia. No facial droop. No change in mentation. No head injury. No headache. No paralysis. No paresthesia. Psychiatric: No depression. No anxiety. No mood swings. Endocrine: No abnormal blood sugars. No weight change. PHYSICAL EXAMINATION: General: 67-year-old male in out of bed in no apparent distress. HEENT: Head is atraumatic, normocephalic, pupils were equal round reactive to light and recommendation, extraocular muscle movement were intact, sclera nonicteric, conjunctivae were pale, mucous membranes of the mouth are somewhat dry. Neck: Supple, no JVP, normal carotid upstroke bilaterally, no lymphadenopathy. Chest: Decreased breath sounds at the bases, few rhonchi, no expiratory wheezes, no chest wall tenderness, no intercostal retractions. Heart: First heart sound is normal, second heart sound is normal irregularly irregular with a systolic ejection murmur 2/6 located in the left sternal border. Abdomen: Soft, nontender, nondistended, positive bowel sounds. Extremities: There is no edema no calf tenderness DP +2 bilaterally, Right knee with a dressing in place, minimal bruising. Neurologic examination: Patient is awake alert and oriented x3, cranial nerves II-12 appear grossly intact, muscle power were 5 out of 5 in upper extremities and 4 out of 5 in bilateral lower extremities, deep tendon reflexes normal bilaterally. ASSESSMENT AND PLAN: 1. Postoperative day # 1 status post Right total knee arthroplasty. Patient was instructed to continue the use of incentive spirometer to reduce the incidence of atelectasis and healthcare associated pneumonia, continue current pain management, continue physical therapy and Occupational Therapy evaluation, continue patient on Coumadin keep his INR 2-3. Meanwhile continue Lovenox 30 mg subcutaneous every 12 hours until the INR therapeutic. 2. Hypertension and hypertensive cardiovascular disease. Continue patient on metoprolol 50 mg orally twice a day as well as lisinopril 5 mg orally once every day, monitor the patient blood pressure very closely. 3 . Mixed hyperlipidemia. Continue patient on rosuvastatin or its substitute atorvastatin 40 mg along with ezetimibe 10 mg once a day. 4. Idiopathic gout. Continue patient on Uloric 40 mg orally once every day. 5. Paroxysmal atrial fibrillation. Patient will be maintained on metoprolol 50 mg orally twice every day as well as restarting Coumadin 5 mg orally once every day and 7.5 mg Sunday and Sunday keep Lovenox 30 mg subcutaneous every 12 hours until INR is therapeutic. 6 . Osteoarthritis. Continue current pain management 7. DVT prophylaxis. Continue Lovenox 30 mg subcutaneously every 12 hours and Coumadin to keep his INR 2-3. Discontinue Lovenox when INR therapeutic. 8. GI prophylaxis. Continue PPI. 9. Patient is medically stable to be discharged home. Objective - Vital Signs Vital signs: Vital Signs Temp 98.5 F 07/17/23 07:20 Pulse 71 07/17/23 07:20 Resp 16 07/17/23 07:20 BP 106/67 07/17/23 07:20 Pulse Ox 94 L 07/17/23 07:20 FiO2 Intake & Output 07/16/23 07/17/23 07/17/23 18:59 06:59 18:59 Intake Total 1391 480 Output Total 50 1900 Balance 1341 -1420 Weight 93 kg Intake: IV 951 Oral 440 480 Output: Urine 1900 Estimated Blood Loss 50 Other: Voiding Method Bedpan - Labs CBC & Chem 7: 07/17/23 04:37 07/17/23 04:37 Labs: Abnormal Lab Results - Last 24 Hours (Table) 07/17/23 07/17/23 07/17/23 Range/Units 04:37 04:37 04:37 WBC 16.32 H (4.50-10.00) X 10*3/uL RBC 4.25 L (4.40-5.60) X 10*6/uL Hgb 12.3 L (13.0-17.0) g/dL Hct 36.5 L (39.6-50.0) % Immature Gran # 0.08 H (0.00-0.04) X 10*3/uL Neutrophils # 13.52 H (1.80-7.70) X 10*3/uL Monocytes # 1.31 H (0.20-1.00) X 10*3/uL Eosinophils # 0 L (0.04-0.35) X 10*3/uL PT 12.4 H (9.9-11.9) sec INR 1.16 H (0.93-1.11) sec Carbon Dioxide 20.9 L (21.6-31.8) mmol/L Anion Gap 12.10 H (4.00-12.00) mmol/L Glucose 145 H (70-110) mg/dL Calcium 8.6 L (8.7-10.3) mg/dL Total Protein 6.1 L (6.2-8.2) g/dL Albumin 3.3 L (3.8-4.9) g/dL Albumin/Globulin Ratio 1.18 L (1.60-3.17) Ratio
[2023-07-17] MEDS: MULTIVITAMINS, THERA 1 EACH TAB PO SCH (12:55)
[2023-07-17] MEDS: lisinopriL 5 MG TAB PO SCH (12:55)
[2023-07-17 15:14] VITALS: BP 112/70; PULSE 77; TEMP 98.2
[2023-07-17] MEDS ORDERED: WARFARIN 7.5 MG TAB PO ONE (18:00)
[2023-07-17] MEDS ORDERED: WARFARIN 5 MG TAB PO SCH (18:17)
== END 2023-07-17 15:25 | disposition home health service (06) ==
LOC: OR 07:50 → 4SSUR 12:21 → OR 07-17 15:25
PROVIDERS: ATTEND Orthopaedic Surgery
DX: M17.11 Unilateral primary osteoarthritis, right knee (principal); G89.18 Other acute postprocedural pain; I11.9 Hypertensive heart disease without heart failure; E78.2 Mixed hyperlipidemia; I48.0 Paroxysmal atrial fibrillation; M10.00 Idiopathic gout, unspecified site; Z96.652 Presence of left artificial knee joint; Z79.01 Long term (current) use of anticoagulants; Z79.899 Other long term (current) drug therapy; Z79.82 Long term (current) use of aspirin
CPT/HCPCS: 97161; 64999; 64448; 80053; 85025; 85610 ×2; 73560; 27447; C1776; C1713 ×2; C1751; J2250; J1100; J0690 ×3; J2405; J1650; J2795

== ENCOUNTER 2024-05-30 13:12 | Day surgery (SDC) | payer MEDICARE, OTHER ==
[2024-05-29 09:13] VITALS: BMI 30.1
[~2024-05-30 13:12] MED LIST changes: -HYDROmorphone 0.5 MG/0.5 ML SYRINGE IVP PRN; +LIDOCAINE 1% (10MG/ML) FOR IV START INTRADERMA PRN; -TRANEXAMIC 1,000 MG/100ML-NACL 1,000 MG in SALINE 1 100ML.BAG IVPB PRN
[2024-05-30 14:01] VITALS: TEMP 98.3
[2024-05-30] MEDS: IV FLUID CONTINUATION 1,000 ML IV ONE (14:08)
[2024-05-30] MEDS: LACTATED RINGERS 1,000 ML IV SCH (14:13)
[2024-05-30] MEDS ORDERED: PROPOFOL 10 MG/ML 20 ML VIAL IV ONE (15:35)
--- NOTE | 2024-05-30 15:54 | P.PCN ---
Date of Procedure: 05/30/24 Procedure(s) Performed: BRIEF HISTORY: Patient is a 68-year-old pleasant white male scheduled for an elective colonoscopy as a part of screening for colon cancer. PROCEDURE PERFORMED: Colonoscopy. PREOPERATIVE DIAGNOSIS: Screening for colon cancer. IV sedation per Anesthesia. PROCEDURE: After informed consent was obtained, the patient, was brought into the endoscopy unit. IV sedation was administered by Anesthesia under continuous monitoring. Digital rectal examination was normal. Initially the Olympus CF-160 flexible video colonoscope was then inserted in the rectum, gradually advanced into the cecum without any difficulty. Careful examination was performed as the scope was gradually being withdrawn. Ileocecal valve and the appendiceal orifice were visualized and appeared normal. Prep was excellent. Mucosa of the cecum, ascending colon, transverse colon, descending colon, sigmoid colon, and rectum appeared normal. Scattered sigmoid diverticulosis retroflexion was performed in the rectum and no lesions were seen. The patient tolerated the procedure well. IMPRESSION: Normal-appearing colon from rectum to cecum with no evidence of colorectal neoplasia. Scattered sigmoid diverticulosis and small internal hemorrhoids. RECOMMENDATIONS: Findings of this examination were discussed with the patient as well as his family. He was advised to have repeat screening colonoscopy in 10 years.
[2024-05-30 16:52] VITALS: BP 122/85; PULSE 79; RESP 20
== END 2024-05-30 16:49 | disposition home or self-care (01) ==
LOC: ORWHC2ENDO 13:12
PROVIDERS: ATTEND Internal Medicine Gastroenterology
DX: Z12.11 Encounter for screening for malignant neoplasm of colon (principal); K57.30 Diverticulosis of large intestine without perforation or abscess without bleeding; K64.8 Other hemorrhoids; I10 Essential (primary) hypertension; E78.5 Hyperlipidemia, unspecified; I48.91 Unspecified atrial fibrillation; F17.200 Nicotine dependence, unspecified, uncomplicated; Z79.01 Long term (current) use of anticoagulants; Z79.899 Other long term (current) drug therapy
CPT/HCPCS: J2704; G0121; 45378